=== PATIENT | male | born 1960 | race Caucasian/White ===

== ENCOUNTER 2024-09-27 23:58 | Inpatient (IN) | payer MEDICARE, SELFPAY ==
[2024-09-27 21:29] VITALS: BP 137/64
[2024-09-27] MEDS: NSS 1000 IV ×3 (21:45→23:10)
[2024-09-27] MEDS: OFIRMEV 100 IV (21:45)
[2024-09-27 21:47] LABS: Glucose - Point of Care 417 mg/dl (70-99)
[2024-09-27 22:00] VITALS: BP 120/62
[2024-09-27 22:07] LABS: Urine Albumin 1+ (Neg - Trace); Urine Bilirubin Negative (Negative); Urine Character Clear (Clear); Urine Color Yellow; Urine Glucose 3+ (Negative); Urine Ketone 3+ (Negative); Urine Leukocyte Negative (Negative); Urine Nitrite Negative (Negative); Urine Occult Blood 2+ (Negative); Urine Urobilinogen Negative (Neg - 1+)
[2024-09-27 22:10] LABS: Hematocrit 45.4 % (39.0-52.0); Hemoglobin 14.7 g/dL (13.0-18.0); Mean Corp Hgb Conc. 32.4 g/dL (33.0-37.0); Mean Corpuscular Hgb 28.6 pg (27.0-31.0); Mean Corpuscular Volume 88.3 fL (80.0-94.0); Platelet Count 116 10^3/uL (130-400); Red Blood Cell Count 5.14 10^6/uL (4.70-6.10); Red Cell Dist. Width 13.7 % (11.5-14.5); White Blood Cell Count 13.7 10^3/uL (4.8-10.8)
[2024-09-27 22:15] LABS: Lactic Acid 2.3 mmol/L (0.7-2.0)
[2024-09-27 22:18] LABS: COVID-19 Antigen Negative (Negative)
[2024-09-27 22:20] LABS: ALT (SGPT) 27 U/L (0-50); AST (SGOT) 59 U/L (17-59); Albumin 2.8 g/dl (3.5-5.0); Alkaline Phosphatase 157 U/L (38-126); Blood Urea Nitrogen 23 mg/dl (9-20); Calcium 8.8 mg/dl (8.4-10.2); Carbon Dioxide 6 mmol/L (22-30); Chloride 101 mmol/L (98-107); Glucose 423 mg/dl (70-99); Lipase 34 U/L (23-300); Potassium 2.7 mmol/L (3.5-5.1); Sodium 135 mmol/L (135-145); Total Bilirubin 1.1 mg/dl (0.2-1.3); Total Protein 5.4 g/dl (6.3-8.2); eGFR > 60.00
[2024-09-27 22:21] LABS: Urine Red Blood Cell 0-2 /HPF (0-2); Urine Squamous Cell None seen /LPF (Few); Urine White Cell 0-2 /HPF (0-5)
[2024-09-27] MEDS: ZOSYN 50 IV (22:21)
--- NOTE | 2024-09-27 22:21 | PHANOTE ---
med rec tech(09/27/24)-Unable to interview patient, sister does not know medications. Last [facility] records are from 10/26/23. [facility] has last insulin pen fill in November. Unable to confirm medication frequency or dosage.
[2024-09-27 22:30] LABS: Band Neutrophils 10 % (0-3); Segmented Neutrophils 78 % (42-75)
--- NOTE | 2024-09-27 22:30 | ED.GENMED ---
History of Present Illness
General
Chief Complaint: Fever
Source: patient, family (sister) and ambulance crew
Exam Limitations: clinical condition
Time Seen by Provider: 09/27/24 21:11
Nursing documentation reviewed up to this point in time: agreed with
History of Present Illness
History of Present Illness:
64-year-old male with a past medical history of hypertension, hyperlipidemia, insulin-dependent diabetes who presents to the emergency department with his sister with whom he lives; presents via EMS for evaluation of fever and lethargy. Patient is
lethargic and is limited as a historian as a result. His sister is at bedside and provides collateral history. She says that for the past week patient has had chills, fever, intermittent vomiting and poor appetite. He has been noncompliant with
his insulin for at least 3 days. Today was increasingly lethargic and having chills and brought to the ER for evaluation. He does have a wound on his right foot which is a chronic issue but lately has not been caring for it and has increased
drainage. According to EMS patient was found sitting in his armchair was covered in urine and stool. When asked the patient if he is in pain he says no. He says that he feels very weak. Rest of history limited.
Past History
Past History
ED Past Medical History: HTN, Hypercholesterolemia, IDDM and Other (Nonhealing ulcers, neuropathy)
ED Past Surgical History: Other (Right and left great toe great toe amputation)
Social History
Tobacco: Non-smoker
Alcohol: Occasional
Personal:
Living: with family
Employment: Employed
Family History
Family History: Other (Father with CAD and diabetes)
Review of Systems
Review of Systems
Other source history: family and ambulance crew
All Other Systems: ROS reviewed and negative except as documented in HPI and ROS
Constitutional: Reports fever, fatigue and chills
Cardiac: Denies chest pain
ABD/GI: Reports vomiting; Denies abdominal pain
Phy Exam
Physical Exam
Physical Exam:
General: Sitting in bed eyes closed but opens to voice, weak appearing
Head: Normocephalic, atraumatic
Eyes: Conjunctiva normal
Throat: Airway intact, dry mucous membranes
Neck: Trachea midline, supple without meningismus
Lungs: Tachypnea but normal pulse ox and no increased work of breathing, lungs clear to auscultation bilaterally, no wheezing, rales, rhonchi
Heart: Tachycardia with regular rhythm, no murmurs, gallops, or rubs
Abd: Soft, non distended, no apparent tenderness
Neuro: No gross cranial nerve deficits, moving all extremities equally with no gross motor deficits
Skin: Patient has wound on the plantar surface of the right foot with foul smell, surrounding erythema, dark blood with serous drainage
Extremities: Bilateral lower extremity edema, distal extremities are warm and well-perfused, foot wound on the right as above
Scores
Heart Failure Risk
Heart Failure Risk Score: Not Applicable
Heart Score for Chest Pain Patients
STEMI patient?: Not applicable
Withdrawal Assessment of Alcohol
Withdrawal Assessment Completed?: Not applicable
Sepsis
Sepsis Screening
Sepsis Assessment: Sepsis
Sepsis Screening: Lactate >2mmol/L
Sepsis Screen
Sepsis Screen: Sepsis
Date: 09/27/24
Time: 21:45
Course
Orders/Labs/Results
Orders:
Orders
09/27/24 21:38
Acetaminophen [Tylenol] 1,000 mg PO NOW STA
09/27/24 21:39
Electrocardiogram (*1) Urgent
Reason for Study: Tachycardia
EKG- Treatment ONCE
0.9% Sodium Chloride 1000 ml [Nss] 1,000 ml IV BOLUS
CR Chest Portable - 1 View Urgent
Comment:
Reason For Exam: fever
Reason Study Needs to be Portable: Unable to Transport
09/27/24 21:43
Acetaminophen 1000MG/100Ml [Ofirmev] 1,000 mg in 100 ml .ROUTE .STK-MED
09/27/24 21:44
Acetaminophen 1000MG/100Ml [Ofirmev] 1,000 mg in 100 ml IV ONCE
Acetaminophen IV Indication:: Targeted Temp Management
09/27/24 21:45
Piperacillin/Tazo 3.375 Gram [Zosyn] 3.375 gram in 50 ml IV NOW
Vancomycin [Vancocin] 1,500 mg 0.9% Sodium Chloride 500 ml [Nss] 500 ml IV NOW
09/27/24 21:46
Complete Blood Count/With Diff Urgent
Comprehensive Metabolic Panel Urgent
Lipase Urgent
Manual Differential Urgent
TSH Reflex To Free T4 Urgent
Blood Culture Q30M
ZEB Source: Blood/Venous
Specimen Description:
Blood Culture Q30M
ZEB Source: Blood/Venous
Specimen Description:
09/27/24 21:47
COVID-19 Antigen Urgent
Source: Nasal Swab
Lactate Level [Lactic Acid] Urgent
Urinalysis Reflex To Culture Urgent
Date Specimen was Collected: 09/27/24
Time Specimen was Collected: 21:42
Urine Microscopic Reflex Cult Urgent
Influenza A+B Rapid Molecular Urgent
ZEB Source: Nasal Swab
Specimen Description:
09/27/24 21:49
Wound Culture [Wound/Abscess/Other Culture] Urgent
ZEB Source: Foot
Specimen Description: Right
Date Specimen was Collected: 09/27/24
Time Specimen was Collected: 21:47
09/27/24 22:22
Bedside Glucose- Treatment Q1H
IV Insert/Care/Rem.- Treatment PRN
B-Hydroxybutyrate Urgent
Basic Metabolic Panel Q2H
Glycohemoglobin (HgbA1c) Urgent
0.9% Sodium Chloride 1000 ml [Nss] 1,000 ml IV BOLUS
0.9% Sodium Chloride 1000 ml [Nss] 1,000 ml IV BOLUS
09/27/24 22:29
Potassium Chloride [KCl] 40 meq PO NOW STA
09/27/24 22:57
Arterial Blood Gas Urgent
%Oxygen/Room Air: 95
Potassium Chloride [KCl] 40 meq 0.9% Sodium Chloride 250 ml [Nss] 250 ml IV NOW
09/28/24 00:30
Basic Metabolic Panel Q2H
09/28/24 02:30
Basic Metabolic Panel Q2H
Abnormal Lab Results
09/27/24 09/27/24 09/27/24
21:45 21:46 21:47
WBC 13.7 H 10^3/uL
(4.8-10.8)
MCHC 32.4 L g/dL
(33.0-37.0)
Plt Count 116 L 10^3/uL
(130-400)
Abs Neuts (Manual) 12.0 H 10^3/uL
(1.4-6.5)
Segmented Neutrophils 78 H %
(42-75)
Band Neutrophils 10 H %
(0-3)
Lymphocytes (Manual) 5 L %
(20-51)
pH
pCO2
HCO3
Potassium 2.7 L* mmol/L
(3.5-5.1)
Carbon Dioxide 6 L* mmol/L
(22-30)
BUN 23 H mg/dl
(9-20)
Glucose 423 H mg/dl
(70-99)
Lactic Acid 2.3 H mmol/L
(0.7-2.0)
Alkaline Phosphatase 157 H U/L
(38-126)
Total Protein 5.4 L g/dl
(6.3-8.2)
Albumin 2.8 L g/dl
(3.5-5.0)
Urine Ketones 3+ A
(Negative)
Ur Occult Blood Reflex 2+ A
(Negative)
Urine Glucose 3+ A
(Negative)
Urine Albumin (Reflex) 1+ A
(Neg - Trace)
POC Glucose 417 H mg/dl
(70-99)
09/27/24
22:57
WBC
MCHC
Plt Count
Abs Neuts (Manual)
Segmented Neutrophils
Band Neutrophils
Lymphocytes (Manual)
pH 7.24 L
(7.35-7.45)
pCO2 9 L* mmHg
(35-48)
HCO3 3.9 L* mmol/L
(21-28)
Potassium
Carbon Dioxide
BUN
Glucose
Lactic Acid
Alkaline Phosphatase
Total Protein
Albumin
Urine Ketones
Ur Occult Blood Reflex
Urine Glucose
Urine Albumin (Reflex)
POC Glucose
09/27/24 21:46
Vital Signs
Initial and Last Documented VS:
Initial Vital Signs
Temp Pulse Resp BP Pulse Ox
38.8 C H 114 28 137/64 96
09/27/24 21:29 09/27/24 21:29 09/27/24 21:29 09/27/24 21:29 09/27/24 21:29
Last Documented Vital Signs
Temp Pulse Resp BP Pulse Ox
38.8 C H 114 28 137/64 96
09/27/24 21:29 09/27/24 21:29 09/27/24 21:29 09/27/24 21:29 09/27/24 21:29
MDM/Problems Addressed
Differential Diagnosis Includes:
DKA versus hyperglycemia; sepsis; sources including viral syndrome, UTI, pneumonia, foot wound
MDM/Problems Addressed:
64-year-old male presents for evaluation of lethargy, vomiting, fever/chills worsening over the past week also noncompliant with his insulin. He is tachycardic, tachypneic, febrile. Exam as above�appears to have infected right foot wound. Labs
sent off including a CBC and a CMP, lactate, blood cultures, blood gas, urinalysis, viral swabs. Accu-Chek greater than 400. Will check a chest x-ray EKG. Cover with broad-spectrum antibiotics with concern for sepsis from foot wound. Provide IV
fluids. Plan for admission pending initial workup.
Labs reviewed: CBC shows leukocytosis to 13.7. CMP shows anion gap metabolic acidosis with a bicarb of 6 and an anion gap of 28. Glucose greater than 400. Potassium is 2.7. Concern for DKA in the setting of sepsis however with very low potassium
we will replete potassium prior to initiation of insulin infusion. IV fluid resuscitation is in progress. Already covered with broad-spectrum antibiotics. Lactate was greater than 2�repeat pending fluids. Urinalysis negative for infection.
Chest x-ray question of basilar pneumonia which has been covered with broad-spectrum antibiotics already. Viral swabs negative. At this point will admit for sepsis secondary to foot infection versus pneumonia as well as diabetic ketoacidosis.
Case discussed with hospitalist for admission.
Chronic conditions affecting care:
Diabetes, chronic foot wound
Acute Exacerbation and/or Progression of Chronic Illness:
DKA managed as above�potassium repletion prior to insulin infusion, vigorous fluid resuscitation
Sepsis secondary to pneumonia versus foot wound�treated with fluids and antibiotics
*Radiology
Radiology exam reviewed: preliminary read by ED provider and radiology read reviewed
*Pulse Oximetry
Patient hypoxic: no
*EKG
Interpreted by ED Provider?: Yes
Heart Rate: 112
Rate: tachycardiac
Rhythm: sinus and sinus tachycardia
Interval: normal interval
QRS Pattern: right bundle branch block
Ischemia: non-specific ST changes
*Critical Care Note
Total Time (30-74mins, 75-104mins- exclusive of procedures): 32
comment:
Critical care statement: A total of 32 minutes of critical care time was provided for this patient. This includes management of unstable vital signs, evaluation of the patient at bedside, frequent reassessment, discussion with
consultants/hospitalist, and review of pertinent medical records. This time was separate from time utilized to perform any aforementioned documented procedures
Data Reviewed
Review of Other/Old Records Reveals: Labs and Records
Source: patient, records, family and ambulance crew
Patient Management
Discussion with other providers: Hospitalist (Discussed with hospitalist)
Escalation/DeEscalation of care consider admission/obs:
Admission indicated
ED Attending Note
-
Portions of this chart may have been created with voice recognition software.� Occasional wrong word or��sound alike� substitutions may have occurred due to the inherent limitations of voice recognition software.
Discharge Plan
Departure
Patient Disposition: Admit
Date of Disposition: 09/27/24
Time of Disposition: 22:57
Admit to doctor: Kusum
Presentation/result/management discussed w/ accepting MD/DO: Hospitalist
Discharge Problem:
Diabetic foot infection, DKA (diabetic ketoacidosis), Acute hypokalemia, Sepsis, Pneumonia
Prescriptions:
No Action
Novolin R Regular U100 Insulin 100 UNITS/ML solution
5 units SC MEALS
insulin asp prt-insulin aspart [Novolog Mix 70-30 U-100 Insuln] 1,000 UNITS/10 ML solution
40 unit SC BID@0800,1700
Interventions
Interventions:
*Risk Screen - Suicide Last Done: 09/27/24 21:29
*General Assessment Last Done: 09/27/24 21:29
*Neglect/Abuse Screening Last Done: 09/27/24 21:29
Discharge Date and Time
Print Language: SOUTH SUDANESE
[2024-09-27 22:31] LABS: Burr Cells 1+; Lymphocytes 5 % (20-51); Metamyelocytes 2 % (-); Monocytes 2 % (2-9); Myelocytes 3 % (-); Normal RBC Morphology No; Platelets Checked Yes; Poikilocytosis 1+; Tear Drop Red Blood Cells 1+; Total Cells Counted 100
[2024-09-27 22:49] LABS: TSH Reflex To Free T4 0.67 uIU/ml (0.47-4.68)
[2024-09-27 23:00] VITALS: BP 90/53
--- NOTE | 2024-09-27 23:01 | HPS.HSE ---
Addendum entered and electronically signed by Kelly Barajas MD 09/27/24 23:50:
*CXR with left basilar pneumonia
-add on Azithromycin for atypical coverage
continue Vanc/Zosyn as below
Original Note:
Family Physician
-
Family Physician:
Chief Complaint
-
altered mental status
History of Present Illness
Mr. Maurizio Shepherd is a 64 yo man with hx IDDM, neuropathy, bilateral toe amputation, HTN, HLD, presents to the ER with altered mental status. Per triage, patient was found in a chair in urine and stool, not able to answer questions on arrival.
Patient seen with sister at bedside. He is lethargic, wakes up briefly to sternal rub and only intermittently following commands. Per sister, last week patient was having intermittent rigors and feeling fatigued. He teaches a class on computer
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 This morning patient's sister states she slept late but when she woke up she found him very confused and called 911.
Patient currently denies pain. Per sister, she doesn't think he has taken his insulin in 2-3 days. He has not been able to eat or drink much. No nausea/vomiting or diarrhea. Patient has a right foot open wound oozing blood. Sister reports that
he manages his wounds himself and hasn't seen a doctor in a while.
Medical History
Past Medical History
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
Social History
Tobacco: Non-smoker
Alcohol: Occasional (2 glasses wine weekends)
Drug: None
Employment: Employed (Packing Machine Tender)
Family History
Family History: CAD (Father ) and Other (Mother healthy living age 88 Sister DM 2)
Allergies / Home Medications
Allergies reflects when Allergies were last updated in [facility].
Home Medications with original date entered in [facility]
Allergy/Medication List:
Allergies
Allergy/AdvReac Type Severity Reaction Status Date / Time
ceftriaxone Allergy Nausea / Verified 02/01/23 08:41
Vomiting,
Hepatitis
Home Medications
insulin regular human 100 unit/mL injection solution (Novolin R Regular U-100 Insulin) 5 units SC MEALS Diabetes 03/07/21
insulin aspar prt-insulin aspart 100 unit/mL (70-30) subcutaneous soln (Novolog Mix 70-30 U-100 Insuln) 40 unit SC BID@0800,1700 Diabetes 02/01/23
If medication reconciliation has not been performed, why?: Unresponsive
Review of Systems
-
Unable to obtain full review of systems at this time due to: Other (patient confused)
Physical Exam
Vital Signs
Vital Signs
Temp Pulse Resp BP Pulse Ox
102 F H 114 28 137/64 96
09/27/24 21:29 09/27/24 21:29 09/27/24 21:29 09/27/24 21:29 09/27/24 21:29
Physical Exam
General: Other (patient lethargic, tachypneic )
HEENT: PERRLA
Respiratory: Rales; No Wheezes
Cardiac: S1/S2 and Regular Rhythm
GI: Soft and Non Tender
Musculoskeletal: No Edema and Other (right plantar surface of foot with open wound with bloody drainage and surrounding skin erythema and thickening)
Skin: Warm and Dry; No Rash
Neuro: Sedated
Psych: Calm
Laboratory Results
-
09/27/24 21:46
Laboratory Results
Lactic Acid 2.3 mmol/L (0.7-2.0) H 09/27/24 21:47
Total Bilirubin 1.1 mg/dl (0.2-1.3) 09/27/24 21:46
AST 59 U/L (17-59) 09/27/24 21:46
ALT 27 U/L (0-50) 09/27/24 21:46
Alkaline Phosphatase 157 U/L (38-126) H 09/27/24 21:46
Lipase 34 U/L (23-300) 09/27/24 21:46
Data Reviewed
-
Diagnostic Radiology: Report Reviewed by me
Lab Data: Labs Reviewed by me
Impression/Plan
-
Mr. Maurizio Shepherd is a 64 yo man with hx IDDM, neuropathy, bilateral toe amputation, HTN, HLD, presents to the ER with altered mental status. Per triage, patient was found in a chair in urine and stool, not able to answer questions on arrival.
Triage VS: T 101.8, P 114, RR 28, BP 137/64, SpO2 96%
LABS: WBC 13.7, Hg 14.7, PLT 116, bands 10%, Na 135, K+ 2.7, CO2 6, BUN 23, Cr 1.1, Glucose 423, lactate 2.3, Ca 8.8, T. Bili 1.1, AST 59, ALT 27, Alk Phos 157, TSH 0.67
urine with 3+ Ketones, 2+ occult blood
MAR: 2L IVF, IV K, Vanc/Zosyn
DKA
Lethargy 2/2 above
-in setting of severe sepsis (see below). Patient with glucose 423, bicarb 6
-receiving 3 liters IVF in ER
-admit to ICU
-unfortunately cannot start IV insulin now given Hypokalemia. Once K 3.5 OK to start IV insulin - would give 0.1 units/kg IV bolus followed by drip 0.1 units/kg/hours
-running IVF
-currently ABG shows patient is compensating for metabolic acidosis. Will repeat ABG at 2AM to monitor, low threshold for intubation if rising CO2 - discussed with overnight ICU PRIVATE BRANCH EXCHANGE INSTALLER
Hypokalemia
-will need to place Dobhoff to administer liquid potassium now
-40mEq now + IV 40
-repeat BMP every 2 hours and once K > 3.5 OK to start IV insulin gtt
Severe Sepsis
Right Food Wound Cellulitis
Hx PAD and bilateral toe amputation
-continue IV Vanc/Zosyn
-IVF
-trend lactate
-obtain arterial US
-wound RN consult
DVT PPx Lovenox subQ
FULL CODE - confirmed with sister on admission
Discussed with patient's sister the gravity of patient's condition in setting of severe DKA, severe sepsis and TME. She was told he may not survive this hospitalization.
Total Critical Care Time 50 minutes. I was immediately available to the patient and staff. I personally examined, reviewed labs, diagnostic images/reports, interpretations, treatment plans, discussed patient care with other providers and family
or caregivers (if patient is unable to make decisions), entered orders as appropriate and documented the medical record.
[2024-09-27 23:05] LABS: B.E. -20.7 mmol/L; O2 Saturation % 94.7 % (94-98); PO2 99 mmHg (83-108); pH 7.24 (7.35-7.45)
[2024-09-27 23:07] LABS: HCO3 3.9 mmol/L (21-28); PCO2 9 mmHg (35-48)
[2024-09-27] MEDS: KCL 270 MEQ IV (23:14)
[2024-09-27 23:15] VITALS: BP 102/59
[2024-09-27] MEDS: VANCOCIN 530 MG IV (23:20)
[2024-09-27 23:30] VITALS: BP 98/58
[2024-09-27] MEDS: KCL ELIXIR 40 MEQ TUBE (23:37)
[2024-09-27 23:45] VITALS: BP 104/57
[2024-09-27 23:51] LABS: Blood Urea Nitrogen 24 mg/dl (9-20); Calcium 8.4 mg/dl (8.4-10.2); Carbon Dioxide 6 mmol/L (22-30); Chloride 103 mmol/L (98-107); Glucose 435 mg/dl (70-99); Potassium 2.2 mmol/L (3.5-5.1); Sodium 135 mmol/L (135-145); eGFR > 60.00
[2024-09-28] VITALS (26 sets, daily range): BP systolic 47–120; BP diastolic 26–93; BMI 30.9
[2024-09-28 00:38] LABS: B-Hydroxybutyrate 9.79 mmol/L (0.02-0.27)
[2024-09-28] MEDS: NSS with KCL 20 MEQ 1000 IV ×2 (01:12→05:44)
[2024-09-28] MEDS: KCL ELIXIR 20 MEQ TUBE (01:33)
[2024-09-28 01:54] LABS: Hematocrit 37.8 % (39.0-52.0); Hemoglobin 12.3 g/dL (13.0-18.0); Mean Corp Hgb Conc. 32.5 g/dL (33.0-37.0); Mean Corpuscular Hgb 29.6 pg (27.0-31.0); Mean Corpuscular Volume 91.1 fL (80.0-94.0); Red Blood Cell Count 4.15 10^6/uL (4.70-6.10); Red Cell Dist. Width 13.9 % (11.5-14.5); White Blood Cell Count 14.8 10^3/uL (4.8-10.8)
--- NOTE | 2024-09-28 01:54 | PTCARENOTE ---
Received pt from ED RN. Pt is AAOx0, lethargic/drowsy, responds to tactile stimuli, b/l pupils 3 reactive. ICU GRANULIZING MACHINE OPERATOR at bedside to assess patient, aware of neuro status. decision to intubate on hold at this time. NSR w/ BBB on the monitor. On RA O2 sat
95%, lungs coarse. NGT in the right nare @ 54 cm, clamped per order. C/c #[address] Right foot heel wound, r/l great toe and left pinky toe amputation, sacrum blanchable red, b/l elbow blanchable red, wound care provided (see worklist). Received
pt with IV Vancomycin and KCl infusing. Pt with L AC #18, L wrist #20 and R AC #20. CHG bath provided. Sister @ bedside. IVF initiated. repeat labs sent. Safe environment maintained.
[2024-09-28 02:00] LABS: INR 1.44; PT 18.1 Sec (11.4-14.6)
[2024-09-28 02:01] LABS: APTT 35.6 Sec (23.4-35.0)
[2024-09-28 02:05] LABS: Blood Urea Nitrogen 25 mg/dl (9-20); Carbon Dioxide < 5 mmol/L (22-30); Chloride 109 mmol/L (98-107); Estimated Creatinine Clearance 77 ml/min; Glucose 432 mg/dl (70-99); Potassium 2.6 mmol/L (3.5-5.1); Sodium 138 mmol/L (135-145); eGFR > 60.00
[2024-09-28] MEDS: ZITHROMAX INFUSION 250 IV (02:10)
[2024-09-28] MEDS: LEVOPHED 250 IV ×7 (03:39→18:34)
[2024-09-28 03:41] LABS: Lactic Acid 2.2 mmol/L (0.7-2.0)
--- NOTE | 2024-09-28 03:56 | W.PN.ANESINT ---
Anesthesia Intubation Note
- Intubation Note
Intubation Note:
Diagnosis: DKA / SEPSIS
Blade: Glidescope 4
Tube Size: 8
Depth: 22cm
Side Taped: right
Drugs Used: propofol 50mg
Grade View: I
EtCO2 Present: +
Atraumatic: yes
Attempts: 1
Insertion Start and Stop Time:
SaO2 Pre: 99
SaO2 Post: 99
Glidescope Used: yes
Other Airway Adjustments: no
Pre-Oxygenated: yes
Portable Chest X-Ray: to follow
RSI: no
Suctioned: no
Bilateral Breath Sounds Confirmed: equal bilateral
Vent Settings:
Settings per _X__Attending Physician
[2024-09-28 04:01] LABS: Mean Platelet Volume 10.1 fL (7.4-10.4); Platelet Count 84 10^3/uL (130-400)
--- NOTE | 2024-09-28 04:34 | RESPNOTE ---
ETT advanced 2 cm per PREMIUM CANCELLATION CLERK
[2024-09-28] MEDS: ZOSYN 50 IV ×2 (05:05→09:46)
--- NOTE | 2024-09-28 05:27 | W.PN.UPDATE ---
Update Note
Progress Note Update
5353 Pt became unresponsive requiring to be intubated for airway protection. Patient intubated uneventful.
--- NOTE | 2024-09-28 05:31 | W.PN.UPDATE ---
Update Note
Progress Note Update
Procedure Note: Arterial Line�
� Right Wrist Arrow 20 (12/19)�
Diagnosis:�DKA, sepsis�
IV Line Comments: Uneventful Procedure�
Lacho's test completed pre-procedure: Yes�
A-Line Comments: Sterile technique as per standard protocol, Ultrasound guided insertion�
Functioning A-line in situ: Yes�
A-line Insertion Start Time:0515��
A-line in at:�0520�
[2024-09-28 05:33] LABS: Glucose - Point of Care 430 mg/dl (70-99)
[2024-09-28 05:36] LABS: B.E. -24.2 mmol/L; Ionized Calcium 1.29 mMOL/L (1.15-1.33); O2 Saturation % 99.2 % (94-98); PCO2 23 mmHg (35-48); PO2 190 mmHg (83-108); Potassium 3.6 mMOL/L (3.5-5.1); Sodium 134 mMOL/L (136-145)
[2024-09-28 05:40] LABS: O2 Therapy 50%
[2024-09-28 05:41] LABS: HCO3 5.7 mmol/L (21-28)
--- NOTE | 2024-09-28 05:47 | PTCARENOTE ---
Pt more somnolent CEMENT BOAT AND BARGE LOADER Brennan notified, anesthesia paged. Pt intubated #8 ETT 25 @ lip left side. Levo gtt started 4mcg per CEMENT BOAT AND BARGE LOADER Brennan, titration per protocol (see worklist). #16F temperature sensing Mckee placed. Vent settings 22/500/5/50% O2 sat 98%.
Chest xray done, per DENIS Amin ETT advanced to 27 (see order) and NGT advanced to 57 cm. Right radial freya placed, zeroed and transduced. repeat labs and ABG sent.
[2024-09-28] MEDS: SUBLIMAZE 50 MCG IV (05:57)
[2024-09-28] MEDS: LR 250 IV (05:58)
[2024-09-28 06:02] LABS: Lactic Acid 1.8 mmol/L (0.7-2.0)
[2024-09-28 06:27] LABS: ALT (SGPT) 28 U/L (0-50); AST (SGOT) 55 U/L (17-59); Albumin 2.3 g/dl (3.5-5.0); Alkaline Phosphatase 162 U/L (38-126); Blood Urea Nitrogen 31 mg/dl (9-20); Carbon Dioxide < 5 mmol/L (22-30); Chloride 112 mmol/L (98-107); Estimated Creatinine Clearance 62 ml/min; Glucose 490 mg/dl (70-99); Magnesium 2.5 mg/dl (1.6-2.3); Potassium 3.8 mmol/L (3.5-5.1); Sodium 140 mmol/L (135-145); Total Bilirubin 0.6 mg/dl (0.2-1.3); Total Protein 4.8 g/dl (6.3-8.2); eGFR 51.03
[2024-09-28] MEDS: ADRENALIN 250 IV ×2 (06:30→14:32)
[2024-09-28] MEDS: NOVOLIN R 10 UNITS IV (06:37)
[2024-09-28] MEDS: SODIUM BICARBONATE 50 MEQ IV ×4 (06:38→08:20)
[2024-09-28 06:40] LABS: B.E. -26.1 mmol/L; Ionized Calcium 1.28 mMOL/L (1.15-1.33); O2 Saturation % 99.6 % (94-98); PCO2 20 mmHg (35-48); PO2 272 mmHg (83-108); Potassium 3.2 mMOL/L (3.5-5.1); Sodium 133 mMOL/L (136-145)
[2024-09-28 06:42] LABS: O2 Therapy 100%; pH 6.96 (7.35-7.45)
[2024-09-28 06:43] LABS: HCO3 4.5 mmol/L (21-28)
[2024-09-28] MEDS: KCL ELIXIR 40 MEQ PO (06:56)
[2024-09-28] MEDS: SODIUM BICARBONATE 1075 MEQ IV (07:24)
[2024-09-28] MEDS: NOVOLIN R INSULIN INFUSION 100 IV ×2 (07:30→18:43)
[2024-09-28] MEDS: KCL 160 MEQ IV (07:49)
[2024-09-28] MEDS: SODIUM BICARBONATE 1150 MEQ IV ×3 (07:55→17:41)
[2024-09-28] MEDS: PROTONIX IV 40 MG IV ×2 (07:59→19:54)
[2024-09-28] MEDS: NSS (PRESERVATIVE FREE) 10 ML IV ×2 (07:59→19:53)
--- NOTE | 2024-09-28 07:59 | PTCARENOTE ---
Code was called @ 0625. Pt freya SBP in the 30, ICU CARD FIXER @ bedside instructed RN to initiated CPR. Nishant, epi, and levo infusing and maxed per ICU CARD FIXER. See code sheet. RASS obtained. 3 amps bicarb given, bicarb gtt hung (see MAR). Pressors titrated down
per ICU CARD FIXER. Repeat labs sent. BP continued dropping, CPR initiated per assayer helper @ bedside. See code sheet. RASS obtained. Bedside report given to rowan RN.
[2024-09-28 08:02] LABS: Glucose - Point of Care 384 mg/dl (70-99)
[2024-09-28 08:06] LABS: B.E. -24.4 mmol/L; O2 Saturation % 99.1 % (94-98); PCO2 22 mmHg (35-48); PO2 310 mmHg (83-108); Potassium 2.9 mMOL/L (3.5-5.1); Sodium 138 mMOL/L (136-145)
[2024-09-28 08:10] LABS: HCO3 5.4 mmol/L (21-28)
--- NOTE | 2024-09-28 08:23 | W.PN.UPDATE ---
Update Note
Progress Note Update
0600 Patient becoming hypotensive, Bicarbonate pushed, levophed increased.
0615 Blood pressure continues to decline, added Epi and Kaiden
0630 BP 30/10; CPR started, 1 amp of EPI pushed, CPR total 2 minutes ( ROSC regained)
[address] Arroyo, suggested given 2 amp of bicarbonate, and starting bicarb drip
0730 BP 25/5; CPR started (second time), 1 amp of EPI pushed, CPR total 2 minutes ( ROSC regained)
0745 Continues on EPI, KAIDEN, and Levophed.
[2024-09-28 08:31] LABS: Blood Urea Nitrogen 32 mg/dl (9-20); Calcium 7.4 mg/dl (8.4-10.2); Carbon Dioxide < 5 mmol/L (22-30); Chloride 113 mmol/L (98-107); Estimated Creatinine Clearance 49 ml/min; Glucose 556 mg/dl (70-99); Potassium 3.1 mmol/L (3.5-5.1); Sodium 144 mmol/L (135-145); eGFR 38.42
[2024-09-28 09:17] LABS: Glucose - Point of Care 423 mg/dl (70-99)
[2024-09-28] MEDS: SUBLIMAZE 25 MCG IV ×4 (09:46→22:38)
--- NOTE | 2024-09-28 09:48 | W.PN.HOSP.TC ---
Today's Communication/Plan
-
Total Critical Care Time_55____ minutes. I was immediately available to the patient and staff. I personally examined, reviewed labs, diagnostic images/reports, interpretations, treatment plans, discussed patient care with other providers and
family or caregivers (if patient is unable to make decisions), entered orders as appropriate and documented the medical record.
Discussed with manager assembly, nursing.
Assessment / Plan
Assessment / Plan
Impression:
Severe sepsis with multiple organ failure
Septic shock with hypotension not responding to IV fluid bolus and requiring multiple pressors.
Gram-positive bacteremia
Left lower lobe infiltrate suspected community-acquired pneumonia
Right foot chronic wound
VDRF.
� Intubated 09/27 in the settings of metabolic encephalopathy and hemodynamic instability.
PEA arrest.
Toxic metabolic encephalopathy in the settings of severe shock and acidosis.
Metabolic acidosis/DKA.
Acute kidney injury
Profound hypokalemia
Reported gastrointestinal illness days prior to presentation
Conditions prior to admission:
IDDM.
Essential hypertension.
Diabetic neuropathy.
Dyslipidemia.
Obesity with BMI of 30.
Chronic right foot wound/Charcot foot.
Plan:
Severe sepsis with septic shock not responding to IV fluid bolus requiring multiple pressors.
Blood culture with gram-positive cocci in clusters 2/2 likely sourced from right foot chronic wound
Chest x-ray with left lower lobe infiltrate concern for community-acquired pneumonia.
Broad-spectrum antibiotics vancomycin/Zosyn/azithromycin.
Follow repeat blood cultures for final results and sensitivity.
Wound assessment for surgical debridement if required.
Echocardiogram to rule out intracardiac infection once rate is better controlled (currently with persistent sinus tach)
If diarrheal stool, check for norovirus
ID consultation.
Status post PEA arrest
Remains severely hypotensive
Continue aggressive IV fluid resuscitation with sodium and bicarbonate.
Currently requires multiple pressors including norepinephrine, phenylephrine, epinephrine.
VDRF.
Intubated with toxic metabolic encephalopathy and hemodynamic instability.
Continue sedation with fentanyl
Toxic metabolic encephalopathy.
Currently post PEA arrest.
Attempt to wean off sedation to assess neurologic status
CT scan of the head.
DKA.
Severe metabolic acidosis ABG: pH 6.9
Initiated on insulin drip.
Continue IV sodium bicarbonate.
Acute kidney injury in the settings of profound hypotension/prerenal stimuli.
Mckee catheter.
IV fluid with bicarbonate ongoing.
Pressor support with goal of MAP 55-60
Serial BMP
Consider nephrology evaluation
Essential hypertension.
Dyslipidemia
Diabetic neuropathy
Full code.
DVT prophylaxis Lovenox
Anticipated Discharge: > 48 hours
Subjective/Interval History
-
Date of Service: September 28, 2024
Objective Data
-
Labs:
Laboratory Results
09/27/24 09/27/24 09/27/24
21:46 22:57 23:04
WBC 13.7 H
Hgb 14.7
Hct 45.4
Plt Count 116 L
PT
INR
APTT
HCO3 3.9 L*
Sodium 135 135
Potassium 2.7 L* 2.2 L*
Chloride 101 103
Carbon Dioxide 6 L* 6 L*
BUN 23 H 24 H
Creatinine 1.1 1.2
Glucose 423 H 435 H
Calcium 8.8 8.4
Total Bilirubin 1.1
AST 59
ALT 27
Alkaline Phosphatase 157 H
09/28/24 09/28/24 09/28/24
00:30 01:41 02:00
WBC 14.8 H
Hgb 12.3 L
Hct 37.8 L
Plt Count 84 L D
PT 18.1 H
INR 1.44
APTT 35.6 H
HCO3 Cancelled
Sodium Cancelled 138
Potassium Cancelled 2.6 L*
Chloride Cancelled 109 H
Carbon Dioxide Cancelled < 5 L*
BUN Cancelled 25 H
Creatinine Cancelled 1.2
Glucose Cancelled 432 H
Calcium Cancelled 8.0 L
Total Bilirubin
AST
ALT
Alkaline Phosphatase
09/28/2424 09/28/24
03:15 04:00 04:15
WBC
Hgb
Hct
Plt Count
PT
INR
APTT
HCO3
Sodium Cancelled Cancelled Cancelled
Potassium Cancelled Cancelled Cancelled
Chloride Cancelled Cancelled Cancelled
Carbon Dioxide Cancelled Cancelled Cancelled
BUN Cancelled Cancelled Cancelled
Creatinine Cancelled Cancelled Cancelled
Glucose Cancelled Cancelled Cancelled
Calcium Cancelled Cancelled Cancelled
Total Bilirubin
AST
ALT
Alkaline Phosphatase
09/28/24 09/28/24 09/28/24
05:24 05:24 05:24
WBC
Hgb
Hct
Plt Count
PT
INR
APTT
HCO3
Sodium 140 Cancelled
Potassium 3.8 D Cancelled
Chloride 112 H
Carbon Dioxide
BUN
Creatinine
Glucose
Calcium
Total Bilirubin
AST
ALT
Alkaline Phosphatase
09/28/24 09/28/24 09/28/24
05:24 05:24 05:24
WBC
Hgb
Hct
Plt Count
PT
INR
APTT
HCO3
Sodium
Potassium
Chloride Cancelled
Carbon Dioxide < 5 L* Cancelled
BUN 31 H Cancelled
Creatinine 1.5 H
Glucose
Calcium
Total Bilirubin
AST
ALT
Alkaline Phosphatase
09/28/24 09/28/24 09/28/24
05:24 05:24 05:24
WBC
Hgb
Hct
Plt Count
PT
INR
APTT
HCO3
Sodium
Potassium
Chloride
Carbon Dioxide
BUN
Creatinine Cancelled
Glucose 490 H* Cancelled
Calcium 8.0 L Cancelled
Total Bilirubin 0.6
AST 55
ALT 28
Alkaline Phosphatase 162 H
09/28/2424 09/28/24
05:26 06:36 07:54
WBC
Hgb
Hct
Plt Count
PT
INR
APTT
HCO3 5.7 L* 4.5 L* 5.4 L*
Sodium 144
Potassium 3.1 L
Chloride 113 H
Carbon Dioxide < 5 L*
BUN 32 H
Creatinine 1.9 H
Glucose 556 H*
Calcium 7.4 L
Total Bilirubin
AST
ALT
Alkaline Phosphatase
09/28/24 09/28/24 09/28/24
08:00 10:00 12:00
WBC
Hgb
Hct
Plt Count
PT
INR
APTT
HCO3
Sodium Cancelled Pending Cancelled
Potassium Cancelled Pending Cancelled
Chloride Cancelled Pending Cancelled
Carbon Dioxide Cancelled Pending Cancelled
BUN Cancelled Pending Cancelled
Creatinine Cancelled Pending Cancelled
Glucose Cancelled Pending Cancelled
Calcium Cancelled Pending Cancelled
Total Bilirubin
AST
ALT
Alkaline Phosphatase
09/28/24
14:00
WBC
Hgb
Hct
Plt Count
PT
INR
APTT
HCO3
Sodium Pending
Potassium Pending
Chloride Pending
Carbon Dioxide Pending
BUN Pending
Creatinine Pending
Glucose Pending
Calcium Pending
Total Bilirubin
AST
ALT
Alkaline Phosphatase
Vital Signs:
Vital Signs
Temp Pulse Resp BP Pulse Ox
100 F 141 28 85/62 99
09/28/24 05:55 09/28/24 09:15 09/28/24 09:15 09/28/24 08:00 09/28/24 09:31
I&O
09/27/24 09/28/24 09/29/24
06:59 06:59 06:59
Intake Total 1274.0 / 1854.5 1703.5 / 1703.5
Output Total 409 / 439 80 / 80
Balance 865.0 / 1415.5 1623.5 / 1623.5
Physical Exam
-
General: Well Developed and Other (Sedated, intubated.)
HEENT: Normocephalic, Atraumatic, Moist Mucous Membranes and Other (ET tube in place with clear secretions)
Respiratory: Decreased Breath Sounds; Negative Wheezes
Cardiac: Regular Rhythm, S1/S2 and Tachycardic; Negative Murmur, Rub or Gallop
GI: Soft, Nontender, Nondistended and Normal Bowel Sounds; Negative Organomegaly
Rectal: Deferred by Provider
Musculoskeletal: No Clubbing, No Cyanosis and No Edema
Skin: Negative Rash
Neuro: Sedated and Nonfocal/Grossly Intact
--- NOTE | 2024-09-28 10:00 | PTCARENOTE ---
2nd code called at bedside at approx 0730, CPR started again, 1 epi and 1 bicard bolus given, Pt returned to ROSC. Dr Arroyo in room during code. See code sheet for details. Pt does not open eyes to sound or tactile stimuli. HR ST with BBB, EPI,
Bicarb, NS with 20 meq KCL, Levo, and Nishant drip infusing. (see worksheet for rates). Reg Ins drip started when received from pharmacy. Accu checks being done q 1 hr, glu running 423-497. Ins rate to stay at 6 units/hr as per Dr Arroyo for now. Pt
with +3 edema on R Lower ext and L Lower ext +1 edema. All labs have and meds havae been reviewed with Dr Arroyo and Dr De La Torre. Pt is orally intubated, #8, 27 at L lip, vent settings presently weaned to AC 30, 500 TV, 5 peep, and60%, Lungs coarse
throughout and diminished at bases bilat. Scant to no secretions from suctioning ETT. Exts cool, but temp 99 ax. NGT clamped, meds/KCL given via NGT as ordered. Mckee cath with sm amt yellow cloudy urine draining. Pt's sister to room and updated.
[2024-09-28 10:15] LABS: Glucose - Point of Care 487 mg/dl (70-99)
--- NOTE | 2024-09-28 10:27 | CM ---
CM following rte: discharge planning.
Discussed in Rounds, reviewed pt's chart, met with pt.
Pt is a 64 year old male, admitted with primary dx of Severe sepsis with septic shock. Per Rounds meeting, pt remains intubated, not responding to IV fluid bolus and requiring multiple pressors, continue supportive care.
Per chart review, pt lives with mother and a sister in a 2 story home, 2 steps to enter. Patient has walker, rolling walker, cane, knee scooter, wheelchair. No VN or Skilled rehab in the past. Patient works and drives. Pt was doing wound care by
himself and refused to have VN services and per sister did not see a Dr.
PCP: Dr Kennedy.
Pharmacy: [facility]
D/C plan: uncertain at this time and will depend on pt's progress.
CM will follow with discharge plan updates as hospitalization progresses
--- NOTE | 2024-09-28 10:37 | CON.ID ---
Addendum entered and electronically signed by Sobia Barreto MD 09/28/24 16:19:
I personally performed a history and physical exam of the patient and discussed management with the resident. I reviewed the resident's note and agree with the documented findings and plan of care HPI/CC.
Exam:
Acutely ill, on vent
Chest: + rhonchi
CV: tachycardic S1S2,, no murmurs
Abd: normal BS, soft, nontender, nondistended
Extremities: cool, dusky toes and fingers. + BLE lymphedema , very dry skin
Wounds: reviewed photos + R charcot foot , right plantar foot with large deep wound, pink red granulation base
left heel unstageable large wound with necrosis, + erythema (+ bogginess per wound RN)
09/28/24 CXR: personally reviewed, no infiltrates
# Staph aureus (probably MSSA) bacteremia
# Left heel unstageable wound - likely source
# Septic shock with multi-organ failure , on 3 pressors
# s/p cardiac arrest x 2
# DM with DKA
# Obtunded
- TTE
-Repeat blood cx's until clear
- Add cefazolin 2g IV q8H for suspected MSSA
- Continue Vancomycin for now pending culture data
Follow vancomycin level closely
- DC Zosyn
- Continue ICU support
-Trend fever curve, vitals, wbc
- Prognosis poor.
Case discussed with Dr. Arroyo.
Original Note:
Consultation
-
Date/Time Consultation Requested: 09/28/2024
Date/Time Consultation Performed: 09/28/2024
Requesting Provider: Laura Traore CRNP
Performing Provider: Sobia Barreto MD
Reason for Consultation: Diabetic foot wound
Chief Complaint / Past History
Chief Complaint
Fever and chills
History of Present Illness
This is a 64-year-old male with a history of left fifth toe osteomyelitis, Charcot foot, T2DM who presented to the emergency department yesterday for evaluation of fever and lethargy. Patient has been experiencing symptoms of generalized weakness,
chills, fever and intermittent vomiting over the past 3 days. Patient currently has a wound on his right foot which has been a chronic issue. He has been seen multiple times at [facility] for right foot wound. Over the past few days,
there has been increased drainage of wound. On presentation to ER, patient was febrile with temperature 102 �F, tachycardic at 114, respiratory rate 28, blood pressure 137/64. Evaluation with a chest x-ray showed left basilar pneumonia.
Laboratory on presentation showed WBC 14.8, platelet count 84, potassium 3.1, lactic acid 2.3. Patient was admitted, started on vancomycin and Zosyn. Blood cultures were ordered. At 345 this a.m. patient became unresponsive requiring intubation.
In addition patient became hypotensive, had multiple episodes of PEA arrest, now on multiple pressors including epinephrine, phenylephrine, epinephrine. Blood cultures have returned with gram-positive cocci in clusters X2.
Past History
Past Medical History: Other (Hypertension, hyperlipidemia, T2DM, neuropathy, Charcot foot)
Past Surgical History: Other (Right and left great toe amputations,)
Allergy History:
ceftriaxone Allergy (Verified 02/01/23 08:41)
Nausea / Vomiting, Hepatitis
Medications Reviewed: Yes
Current Antibiotics:
Zosyn
Vancomycin
Social History
Tobacco: Non-Smoker
Alcohol: Occasional
Drug: None
Review of Systems
Review of Systems
General: Other (unable due to intubation)
Vital Signs
Temp Pulse Resp BP Pulse Ox
100 F 141 28 85/62 99
09/28/24 05:55 09/28/24 09:15 09/28/24 09:15 09/28/24 08:00 09/28/24 09:31
Physical Exam
Physical Exam
Constitutional: Other (Intubated and sedated)
Cardiovascular: Irregular Rate and S1/S2
Pulmonary: Other (Decreased breath sounds bilaterally)
Gastrointestinal: Soft, Non Tender and Non Distended
Extremities: Negative Edema
Lab / Diagnostic Study Results
09/28/24 01:41
Total Counted 100 09/27/24 21:46
Abs Neuts (Manual) 12.0 10^3/uL (1.4-6.5) H 09/27/24 21:46
Segmented Neutrophils 78 % (42-75) H 09/27/24 21:46
Band Neutrophils 10 % (0-3) H 09/27/24 21:46
Lymphocytes (Manual) 5 % (20-51) L 09/27/24 21:46
PT 18.1 Sec (11.4-14.6) H 09/28/24 01:41
INR 1.44 09/28/24 01:41
Lactic Acid 1.8 mmol/L (0.7-2.0) 09/28/24 05:24
Ur Squamous Epith Cells None seen /LPF (Few) 09/27/24 21:47
Microbiology Results
Micro:
09/27/24 21:46 Blood Culture - Preliminary
Blood/Venous Staphylococcus aureus
Gram Stain - Final
09/27/24 21:46 Blood Culture - Preliminary
Blood/Venous Positive culture in progress
Gram Stain - Final
09/28/24 01:41 MRSA Screen - Pending
Nose
09/27/24 21:47 Influenza Types A & B (MIRANDA) - Final
Nasal Swab Negative for Influenza A & B, NAAT
Negative results must be combined with clinical observations
and patient history.
Nucleic Acid Amplification test (NAAT)performed on the
[employer] platform.
09/27/24 21:49 Wound Culture - Pending
Foot - Right Gram Stain - Pending
11/28/2023 chest x-ray; Left basilar pneumonia.
Assessment / Plan
Assessment/plan
#Severe sepsis(POA) secondary to below
#Chronic wound of right foot
#Gram-positive bacteremia
# PEA arrest
# Respiratory failure
-Intubated and sedated 09/27
#Septic shock requiring multiple pressors
-Blood cultures with gram-positive cocci in clusters
-Initiated on broad-spectrum antibiotics with vancomycin/Zosyn
-will d/c Zosyn.
-Continue on Vancomycin, Add Cefazolin for MSSA.
-Check Blood cultures today.
-Consider echocardiogram when patient stabilizes
-Follow wbc, temperature.
--- NOTE | 2024-09-28 10:44 | WOUNDNOTE ---
R PLANTAR FOOT (with photo flash)
--- NOTE | 2024-09-28 10:44 | WOUNDNOTE ---
R PLANTAR FOOT (undermines approximately 3cm)
--- NOTE | 2024-09-28 10:46 | WOUNDNOTE ---
L FOOT/ANKLE (DORSAL)
--- NOTE | 2024-09-28 10:51 | CON.INTV ---
Consultation
Consultation Request
Date/Time Consultation Requested: 09/28/2024
Date/Time Consultation Performed: 09/28/2024
Requesting Provider: Dr. Barajas
Performing Provider: Dr. Mao Arroyo
Reason for Consultation: Hypercapnic respiratory failure/shock/DKA
Medical History
-
History of Present Illness:
64-year-old man with history of insulin-dependent diabetes, neuropathy, bilateral toe amputation, right foot wound possible osteomyelitis, hyperlipidemia, presented to the emergency room with altered mental status. Her sister who lives with him
found him in a chair covered with urine and his stools. Patient not able to give any information on arrival.
Lethargic, not following commands consistently apparently in the emergency room.
Apparently patient has been sick for about a week, developed nausea vomiting or diarrhea. Apparently not taking his insulin for the last 3 to 4 days.
Unable to provide history.
Subsequently due to obtundation patient was intubated.
Potassium repletion was started. Bicarbonate also subsequently started.
Patient developed acute cardiorespiratory arrest requiring CPR.
Upon my arrival this morning, despite 3 vasopressors, high doses of epinephrine, norepinephrine and Nishant-Synephrine patient was hypotensive. Persistent acidosis despite multiple doses of bicarbonate.
Additional brief CPR was given.
Regain of ROSC in about 2 minutes.
Past Medical History
Past Medical History: Other (See assessment and plan)
Social History
Alcohol: None
Drug: None
Family History
Family History: Unable to Obtain
Allergies / Home Medications
Allergies
Allergy/AdvReac Type Severity Reaction Status Date / Time
ceftriaxone Allergy Nausea / Verified 02/01/23 08:41
Vomiting,
Hepatitis
Home Medications
�Medication �Instructions �Recorded �Confirmed �Last Taken �Type
insulin regular human 100 unit/mL 5 units SC MEALS Diabetes 03/07/21 02/01/23 02/01/23 History
injection solution (Novolin R
Regular U-100 Insulin)
insulin aspar prt-insulin aspart 40 unit SC BID@0800,1700 Diabetes 02/01/23 02/01/23 02/01/23 History
100 unit/mL (70-30) subcutaneous
soln (Novolog Mix 70-30 U-100
Insuln)
Review of Systems
-
Unable to Obtain full review of systems at this time due to: Patient Intubation
Vitals / Labs / Diagnostic Testing
Vital Signs
Temp Pulse Resp BP Pulse Ox
100 F 141 28 85/62 99
09/28/24 05:55 09/28/24 09:15 09/28/24 09:15 09/28/24 08:00 09/28/24 09:31
Lab Data
09/28/24 01:41
Laboratory Results
09/27/24 09/28/24 09/28/24
22:57 01:41 02:00
PT 18.1 H
INR 1.44
APTT 35.6 H
pH 7.24 L Cancelled
pCO2 9 L* Cancelled
pO2 99 Cancelled
HCO3 3.9 L* Cancelled
O2 Delivery Level Cancelled
09/28/24 09/28/24 09/28/24
05:26 06:36 07:54
PT
INR
APTT
pH 7.00 L* 6.96 L* 7.00 L*
pCO2 23 L 20 L 22 L
pO2 190 H 272 H 310 H
HCO3 5.7 L* 4.5 L* 5.4 L*
O2 Delivery Level 50% 100%
Microbiology
09/27/24 21:46 Blood/Venous Blood Culture - Preliminary
Staphylococcus aureus
09/27/24 21:46 Blood/Venous Gram Stain - Final
09/27/24 21:46 Blood/Venous Blood Culture - Preliminary
Positive culture in progress
09/27/24 21:46 Blood/Venous Gram Stain - Final
09/27/24 21:47 Nasal Swab Influenza Types A & B (MIRANDA) - Final
Negative for Influenza A & B, NAAT
Negative results must be combined with clinical observations
and patient history.
Nucleic Acid Amplification test (NAAT)performed on the
[employer] platform.
Diagnostic Testing:
Physical Exam
-
HEENT: Normocephalic and Other (ET tube in place without secretions)
Cardiovascular: S1/S2
Respiratory: Clear
GI: Soft and Non Distended
Neurology: Other (Pupils are equal, sluggish, difficult exam at this point remains comatose.) and Other (Sedated/unresponsive unresponsive, intubated on mechanical ventilation.)
Skin: Other (Bilateral toe amputations. Right foot is dressed.)
Assessment
-
64-year-old man with history of insulin-dependent diabetes, bilateral toe amputation, multiple other comorbidities, admitted with profound metabolic acidosis, change in mental status, developed progressive respiratory failure recurrent intubation.
The morning of 09/28/2024 developed cardiorespiratory arrest requiring CPR x 2. Patient in shock multiple vasopressors, on mechanical ventilation.
Cardiorespiratory arrest likely due to profound metabolic acidosis
CPR x 2 09/28/2024
septic shock-source likely right foot wound.
Hypercapnic respiratory failure recurrent intubation.
DKA-profound metabolic acidosis.
Profound hypokalemia
Conditions present prior admission:
Hyperlipidemia
Peripheral vascular disease
Hypertension
Peripheral neuropathy-Charcot foot
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
Former smoker
Assessment and plan:
Patient is critically ill, on multiple vasopressors, intubated, sedated.
-
Status post cardiorespiratory arrest. Suspect trigger was profound metabolic acidosis.
CPR x 2. Regained ROSC post CPR for about 2 to 3 minutes twice.
Remains unresponsive-has respiratory effort without sedation.
Continue with supportive care.
Eventual CT head
-
Septic shock suspected: Bacteremia with a staff aureus noted.
Suspect source from his right foot.
Chest x-ray unrevealing: ET tube in place. Suspect subsegmental atelectasis. Cannot rule out an aspiration event either.
Continue current antibiotics
Follow culture identification
-
Continue vasopressors epinephrine/norepinephrine and Nishant-Synephrine to target mean arterial blood pressure 65 mmHg.
Initial lactic acid was 1.8. Will trend.
Follow renal function
Mckee in place.
-
Profound metabolic acidosis
Patient received multiple boluses of bicarbonate under my supervision.
Currently on bicarbonate drip at 200 cc an hour
ABG with slight improvement of metabolic acidosis.
Mechanical ventilation has been adjusted.
Repeat ABG in the next 30 to 40 minutes.
-
Insulin drip per DKA protocol
Serial BMPs
Accu-Cheks hourly
-
Mechanical ventilation settings reviewed.
Pulmonary mechanics are adequate.
FiO2 40%.
No significant secretions on ET tube.
Currently on maximal ventilator support with a respiratory rate of 30
Will adjust based on ABG as acidosis improved.
-
Acute kidney injury due to hypotensive insult.
Continue with hemodynamic support
Hypokalemia: Being repleted IV and p.o.
Frequent BMPs.
-
N.p.o.
Head of the bed elevation
IV Protonix for GI prophylaxis
Lovenox for DVT prophylaxis
-
Discussed with primary team in detail.
-
Dr. Arroyo updated daughter personally in the hospital, critical situation, high risk of she understands. I have asked her to bring family at the bedside.
For now continue with full support. Apparently patient would not want prolonged mechanical ventilation or life sustaining measures if there is no chance of a good quality of life.
-
Critical care statement: A total of 81 minutes of critical care time was provided for this patient today. This includes management of unstable vital signs, evaluation of the patient at bedside, reviewing the patient's pertinent medical records
including ventilator settings, arterial blood gases, radiographs, microbiology, laboratory evaluations and discussion with primary team, critical care nursing, and respiratory therapy.
--- NOTE | 2024-09-28 10:53 | WOUNDNOTE ---
[facility] RN note: Patient admitted with sepsis, DKA, pneumonia, R foot infection. Patient coded twice this am.
See H&P for complete history.
PMH: IDDM, neuropathy, bilateral great toe amp, HTN, smoker.
Wound Location and type/assessment: Patient admitted with: R plantar foot full thickness diabetic ulcer to muscle or deeper, dark pink and undermines approximately 3cm. L plantar heel boggy black eschar with surrounding erythema. Toes cool. Patient
on vasopressors. Pedal pulses heard via portable Doppler (L>R). Unable to assess sacrum as per WELT ROUGHERALLISON Reyes d/t post code. Amy stated sacrum reported as red. Amy to tiger text this proposal manager writer if she has concerns with his sacrum when he is able to
be turned.
Appetite: NPO currently, intubated.
Pressure redistribution devices in place: Centrella Max air bed. Heels off bed with pillows.
Plan: Bilateral heel dressings changed. Heel elevation maintained. Updated Dr. Griffin re: full thickness plantar wounds, L plantar heel boggy black eschar with surrounding redness; pedal pulses heard via portable Doppler (R hard to hear);
requested podiatry consult as appropriate re: concern of L heel infection; Confirmed local care, air mattress with Dr. Griffin. Discussed with ALLISON Reyes.
Care plan to be updated and will follow as needed. Patient is known to Dr. Diego.
--- NOTE | 2024-09-28 11:05 | W.PN.UPDATE ---
Update Note
Progress Note Update
Procedure note: CPR.
During evaluation, patient hypotensive despite 3 vasopressors. No pulse detected on femoral artery Dopplers.
CPR started under my supervision. Good waveform obtained.
1 amp of epinephrine and 1 amp of bicarbonate given.
ROSC obtained-remain on epinephrine/Nishant-Synephrine and Levophed at max doses.
Has respiratory effort but remains comatose on mechanical ventilation.
-
Will continue with postcode support and reversal of acidosis.
[2024-09-28] MEDS: KCL ELIXIR 40 MEQ TUBE ×2 (11:15→13:53)
[2024-09-28 11:19] LABS: Vancomycin Random 10.5 ug/ml
[2024-09-28 11:20] LABS: Glucose - Point of Care 497 mg/dl (70-99)
--- NOTE | 2024-09-28 11:23 | W.PN.UPDATE ---
Update Note
Progress Note Update
Now with coffee-ground on NG tube.
Increase Protonix to every 12
Suspect due to acute illness
Follow H&H
May need to stop Lovenox if continues.
Maintain NG tube to suction
[2024-09-28 12:10] LABS: Glucose - Point of Care 411 mg/dl (70-99)
[2024-09-28 12:53] LABS: Blood Urea Nitrogen 39 mg/dl (9-20); Calcium 7.6 mg/dl (8.4-10.2); Carbon Dioxide 9 mmol/L (22-30); Chloride 111 mmol/L (98-107); Estimated Creatinine Clearance 52 ml/min; Glucose 524 mg/dl (70-99); Potassium 2.6 mmol/L (3.5-5.1); Sodium 140 mmol/L (135-145)
--- NOTE | 2024-09-28 13:03 | PHA.VAN.IN ---
Assessment
- Assessment
Renal Function: Appears elevated from baseline
Maximum Temperature: 102
Concomitant Antimicrobials: cefazolin
Plan
- Plan
Initial / Loading Dose: vanc 1500 mg 09/27 23:20 (14 mg/kg)
Maintenance Regimen: dose by level
Monitoring: random 09/28 1000 and 09/29 am
random level 10.5, ~11 hours post 1500 mg dose, redose with 1500mg
Pharmacokinetics Vancomycin I
- -
Patient Age: 31
Patient Sex: Male
Vancomycin Day #: 2
Indication: Skin And Soft Tissue (+bacteremia + possible PNA)
Requesting Provider: BALBIR Momin
Pertinent Antimicrobial Allergies:
ceftriaxone Allergy - Nausea / Vomiting, Hepatitis
Height / Weight:
Height 6 ft 1 in
Actual Weight 106.3 kg
Pertinent Past Medical History: DM, DKA, bilateral toe amputation
- Vital Signs / Lab Results
Temp Pulse Resp BP Pulse Ox
99.4 F 137 30 85/62 100
09/28/24 11:18 09/28/24 12:45 09/28/24 12:45 09/28/24 08:00 09/28/24 12:45
Lab Results - Hematology
09/27/24 09/28/24
21:46 01:41
WBC 13.7 H 14.8 H
Band Neutrophils 10 H
Lab Results - Chemistry
09/27/24 09/27/24 09/28/24
21:46 23:04 00:30
BUN 23 H 24 H Cancelled
Creatinine 1.1 1.2 Cancelled
Estimated Creat Clear Cancelled
Albumin 2.8 L
09/28/24 09/28/24 09/28/24
01:41 03:15 04:00
BUN 25 H Cancelled Cancelled
Creatinine 1.2 Cancelled Cancelled
Estimated Creat Clear 77 Cancelled Cancelled
Albumin
09/28/24 09/28/24 09/28/24
04:15 05:24 05:24
BUN Cancelled 31 H Cancelled
Creatinine Cancelled 1.5 H
Estimated Creat Clear Cancelled
Albumin
09/28/24 09/28/24 09/28/24
05:24 05:24 07:54
BUN 32 H
Creatinine Cancelled 1.9 H
Estimated Creat Clear 62 Cancelled 49
Albumin 2.3 L
09/28/24 09/28/24 09/28/24
08:00 11:29 12:00
BUN Cancelled 39 H Cancelled
Creatinine Cancelled 1.8 H
Estimated Creat Clear Cancelled 52
Albumin
09/28/24 09/28/24 09/28/24
12:00 12:00 12:00
BUN Cancelled
Creatinine Cancelled Cancelled
Estimated Creat Clear Cancelled Cancelled
Albumin
09/28/24 09/28/24 09/28/24
14:00 16:00 20:00
BUN Cancelled Cancelled Cancelled
Creatinine Cancelled Cancelled Cancelled
Estimated Creat Clear Cancelled Cancelled Cancelled
Albumin
09/27/24 09/28/24 09/28/24
21:47 01:41 05:24
Lactic Acid 2.3 H 2.2 H 1.8
Lab Results - Urine
09/27/24
21:47
Urine Nitrite (Reflex) Negative
Leukocyte Esterase Rfl Negative
Urine WBC (Reflex) 0-2
Ur Squamous Epith Cells None seen
Microbiology Results
09/27/24 21:49 Gram Stain - Preliminary
Foot - Right
09/27/24 21:46 Blood Culture - Preliminary
Blood/Venous Staphylococcus aureus
Gram Stain - Final
09/27/24 21:46 Blood Culture - Preliminary
Blood/Venous Positive culture in progress
Gram Stain - Final
09/27/24 21:47 Influenza Types A & B (MIRANDA) - Final
Nasal Swab Negative for Influenza A & B, NAAT
Negative results must be combined with clinical observations
and patient history.
Nucleic Acid Amplification test (NAAT)performed on the
[employer] platform.
[2024-09-28 13:05] LABS: Blood Urea Nitrogen 37 mg/dl (9-20); Calcium 7.6 mg/dl (8.4-10.2); Carbon Dioxide 7 mmol/L (22-30); Chloride 111 mmol/L (98-107); Estimated Creatinine Clearance 49 ml/min; Glucose 539 mg/dl (70-99); Potassium 2.7 mmol/L (3.5-5.1); Sodium 141 mmol/L (135-145); eGFR 38.42
[2024-09-28 13:12] LABS: Glucose - Point of Care 465 mg/dl (70-99)
[2024-09-28] MEDS: KCL 100 IV ×2 (13:53→15:56)
[2024-09-28 13:57] LABS: B.E. -12.4 mmol/L; O2 Saturation % 98.6 % (94-98); PCO2 19 mmHg (35-48); PO2 146 mmHg (83-108); pH 7.36 (7.35-7.45)
[2024-09-28] MEDS: VANCOCIN 530 MG IV (13:59)
[2024-09-28 14:03] LABS: HCO3 10.7 mmol/L (21-28)
[2024-09-28 14:09] LABS: Glucose - Point of Care 427 mg/dl (70-99)
--- NOTE | 2024-09-28 14:10 | PTCARENOTE ---
Dr Arroyo to room, Pt's K+ was 2.6, more KCL 40 meq/100 started over 2 hr, x 2 doses. Additional 40 meq x2 KCL given via NGT. Wound card RN was in to assess Pt's R and L heel open foot wounds. New drsgs and carmela applied to both wonds/feet. 2 L
foot toes amp and 1 R foot toe amp. Foot and Ankle MD in to see pt. She said that she has seen him in the past, but he hasn't been back in a few years. After assessing wounds, she feels pt does not need surg today. Epi drip has been weaned down to 4
mcg/min. Vent O2 down to 40%. Pt's accu checks remain elevated, reg ins drip increased to 8 units/hr, but Dr Arroyo does not want to go up on rate any more for awhile. Bicard con'ts to be replaced with 150 meq/ 1000 at 200 ml/hr. Maintenance IV
wiih K+ has been d/c'd.
[2024-09-28] MEDS: NEO-SYNEPHRINE 250 IV (14:23)
--- NOTE | 2024-09-28 15:06 | W.CS.POD ---
Consult Summary - Podiatry
-
64 yo diabetic neuropathic male admitted tot [facility] with altered mental status change and septic shock presentation, after coding twice this morning he is now on ventilator with vasopressors, Podiatry has been consulted due to his b/l
plantar ulcers and bacteremia, Patient was known to me from prior hosp admissions with multiple diabetic SST infections also osteomyelitis. He was last seen in my office in 09/2022. Patient had this chronic non healing Rt plantar ulcerations now he
has LT plantar ulceration as well. HE is obtunded so obtained majority of the history from chart review, according to his sister, he was not taking his insulin for the last 3 days and she noticed him being not responding well. Patient with
bacteremia on IV Abx
Exam : b/l pedal pulses dopplerable
B/L feet no edema, no duskiness
LT heel eschar with some bogginess noted, no active purulence, no foul odor, There is local erythema noted.
Rt plantar aspect with large, granular ulcer , doses not probe to bone, no visible bone, no purulence noted. Local erythema noted
WBC count at 14.8
A/P: Infected diabetic foot ulcers
LT plantar eschar and Rt palntar ulcer
Septic shock.
Bacteremia
Hyperkalemia.
Plan ; Cont IV abx
Will order b/l portable xrays
D/W hosp service that LT plantar ulcer debridement when stable medically. Since there is no active drainage por any signs of abscess b/l plantar feet on exam .
Podiatry will follow
[2024-09-28 15:15] LABS: Glucose - Point of Care 452 mg/dl (70-99)
--- NOTE | 2024-09-28 15:33 | W.PN.UPDATE ---
Addendum entered and electronically signed by Mao Diallo MD 09/28/24 16:41:
Repeat BMP now with magnesium and phosphorus.
Continue aggressive potassium repletion
If acidosis is improved we will need to discontinue bicarbonate drip as were having difficulty with significant hypokalemia.
Prognosis is guarded
-
Will add vasopressin with attempt to wean down Levophed and Nishant-Synephrine.
Patient now is febrile and this suggest component of septic shock.
Currently on proper antibiotics per infectious disease
Follow final cultures
Eventually will consult podiatry to evaluate his lower extremity wound.
-
Additional critical care time 15-minute
Original Note:
Update Note
Progress Note Update
Laboratories this afternoon reviewed.
Metabolic acidosis is slowly improving
Remains significantly hypokalemic despite aggressive replenishment.
Remains hyperglycemic.
Continue insulin drip but will not aggressively correct blood sugars as patient remains hypokalemic.
Will give IV 40 dom acute events of KCl twice a day. Will also replete through the NG tube.
Continue with close monitoring of BMP.
ABG showed compensated metabolic acidosis-Will adjust mechanical ventilation pending all repeat ABGs.
He is febrile: Continue current antibiotics. Infectious diseases following.
Remains on multiple vasopressors will continue to wean down as able.
Prognosis remain guarded.
-
Additional critical care time 20 minutes
--- NOTE | 2024-09-28 15:40 | PTCARENOTE ---
All drips and labs have be reviewed with Dr Arroyo. Epi drip has been weaned to off, presently weaning Nishant drip next, presntly down to 80 mcg/min. Temp elevated now to 102.1 ax, tylenol elix 650 mg ordered and given.
[2024-09-28] MEDS: TYLENOL ORAL SOLUTION 650 MG TUBE ×2 (15:51→18:10)
[2024-09-28 16:09] LABS: Glucose - Point of Care 439 mg/dl (70-99)
[2024-09-28] MEDS: ANCEF 10 IV ×2 (16:22→23:50)
[2024-09-28] MEDS: PITRESSIN 100 IV ×2 (16:57→23:55)
[2024-09-28 17:06] LABS: Blood Urea Nitrogen 45 mg/dl (9-20); Calcium 7.4 mg/dl (8.4-10.2); Carbon Dioxide 13 mmol/L (22-30); Chloride 110 mmol/L (98-107); Estimated Creatinine Clearance 46 ml/min; Glucose 474 mg/dl (70-99); Magnesium 2.1 mg/dl (1.6-2.3); Phosphorus 0.5 mg/dl (2.5-4.5); Potassium 4.8 mmol/L (3.5-5.1); Sodium 138 mmol/L (135-145); eGFR 36.13
[2024-09-28 17:08] LABS: Glucose - Point of Care 415 mg/dl (70-99)
[2024-09-28 17:21] LABS: Glucose - Point of Care 515 mg/dl (70-99)
[2024-09-28] MEDS: POTASSIUM PHOSPHATE 259.0909 MEQ IV (18:11)
[2024-09-28 18:27] LABS: Glucose - Point of Care 392 mg/dl (70-99)
[2024-09-28 18:33] LABS: Blood Urea Nitrogen 45 mg/dl (9-20); Calcium 7.4 mg/dl (8.4-10.2); Carbon Dioxide 14 mmol/L (22-30); Chloride 112 mmol/L (98-107); Estimated Creatinine Clearance 46 ml/min; Glucose 467 mg/dl (70-99); Potassium 4.9 mmol/L (3.5-5.1); Sodium 137 mmol/L (135-145); eGFR 36.13
--- NOTE | 2024-09-28 18:51 | PTCARENOTE ---
All labs have been reviewed with Dr Arroyo. Bicarb drip decreased to 100 ml/hr. Insulin drip to remain at 8 units/hr. Nishant has also been weaned off now. Levophed at30 mcg/min, and vasopressin 0.03 units/min. Cooling blanket was applied under pt.
Pt's temp presently 105.7, after second dose of tylenol elixir and cooling blanket on for an hr. Mouth care done several times throughout day, nicolas care done, complete CHG bath given and linen changed. Pt's sister was home for a few hrs, and back
now and updated. She is very appreciate of all the care given today for her brother. Pastoral care in see pt and sister.
[2024-09-28 19:08] LABS: Glucose - Point of Care 448 mg/dl (70-99)
--- NOTE | 2024-09-28 20:08 | CHAP ---
Called by sister, Juanis, to pray with Osmin. (Their mother was on Hospice earlier this year, so the family is known to this psychiatric security nurse.) Listened long to Juanis's thoughts and feelings about the situation; provided emotional and spiritual support. We
offered prayers for Osmin. Assurance given of our on-going availability.
[2024-09-28 20:09] LABS: Glucose - Point of Care 401 mg/dl (70-99)
[2024-09-28] MEDS: LEVOPHED 258 MG IV ×2 (20:32→23:55)
[2024-09-28 21:11] LABS: Glucose - Point of Care 439 mg/dl (70-99)
--- NOTE | 2024-09-28 21:30 | PTCARENOTE ---
received from vickift RN. pt not purposeful or following, pupils b/l 3mm reactive. restraints in place. no sedation infusing. pt febrile to 105.7, ICU MUSIC ADAPTER aware, cooling blanket on, ice packs provided, damp sheet placed on patient, gown removed, fan
going in room. levo and vaso infusing at shift change, matthew gtt restarted to maintain MAP >65. levo gtt double concentrated per pharmacy. arterial line leveled and zeroed. ST on monitor w/ BBB. RLE>LLE edema. b/l femoral pulses noted with Doppler. #8
ETT, 27 at lip, adjusted to right side. vent settings AC 30/500/5/30%. minimal secretions, diminished breath sounds noted. NGT clamped @ 57cm. nicolas with minimal UOP. bicarb gtt continues, repeat BMP at 2200. DKA protocol continues with q1h
accuchecks. ICU MUSIC ADAPTER aware of high sugars, currently maintaining rate. sister updated at bedside, care ongoing at this time.
[2024-09-28 22:07] LABS: Glucose - Point of Care 398 mg/dl (70-99)
[2024-09-28 22:18] LABS: Blood Urea Nitrogen 48 mg/dl (9-20); Calcium 7.3 mg/dl (8.4-10.2); Carbon Dioxide 14 mmol/L (22-30); Chloride 111 mmol/L (98-107); Estimated Creatinine Clearance 42 ml/min; Glucose 380 mg/dl (70-99); Potassium 4.1 mmol/L (3.5-5.1); Sodium 139 mmol/L (135-145); eGFR 32.23
[2024-09-28 23:11] LABS: Glucose - Point of Care 426 mg/dl (70-99)
[2024-09-28] MEDS: HEPARIN 5000 UNITS SC (23:50)
[2024-09-29] VITALS: BP 109/53
[2024-09-29 00:19] LABS: Glucose - Point of Care 382 mg/dl (70-99)
--- NOTE | 2024-09-29 00:30 | PTCARENOTE ---
2330- pt upper and lower extremity mottling worsening. + DP pulse with doppler in LLE, absent DP and PT pulses in RLE. ICU CADD DRAFTER made aware and to bedside to assess. warmed RLE for 1 hour, attempted pulse check again. + PT pulse with Doppler, absent DP
pulse. ICU CADD DRAFTER aware. b/l leg US ordered at this time. no other changes noted in assessment.
--- NOTE | 2024-09-29 00:30 | PTCARENOTE ---
2330- pt upper and lower extremity mottling worsening. + DP pulse with doppler in LLE, absent DP and PT pulses in RLE. ICU BUNGHOLE BORER made aware and to bedside to assess. warmed RLE for 1 hour, attempted pulse check again. + PT pulse with Doppler, absent DP
pulse. ICU BUNGHOLE BORER aware. b/l leg US ordered at this time. no other changes noted in assessment. levo/vaso/matthew gtts continue to maintain MAP goal, see flowsheets. insulin gtt continues, ICU BUNGHOLE BORER aware of hourly sugars, no adjustments made to rate. minimal
UOP continues. oral care, CHG bath, nicolas care provided.
[2024-09-29 01:08] LABS: Glucose - Point of Care 338 mg/dl (70-99)
[2024-09-29] MEDS: SUBLIMAZE 25 MCG IV ×4 (02:00→18:12)
[2024-09-29 02:11] LABS: Blood Urea Nitrogen 50 mg/dl (9-20); Calcium 7.5 mg/dl (8.4-10.2); Carbon Dioxide 16 mmol/L (22-30); Chloride 113 mmol/L (98-107); Estimated Creatinine Clearance 37 ml/min; Glucose 265 mg/dl (70-99); Potassium 3.2 mmol/L (3.5-5.1); Sodium 141 mmol/L (135-145); eGFR 27.64
[2024-09-29 02:12] LABS: Glucose - Point of Care 313 mg/dl (70-99)
[2024-09-29] MEDS: KCL 100 IV (02:32)
[2024-09-29 03:09] LABS: Glucose - Point of Care 313 mg/dl (70-99)
[2024-09-29 04:12] LABS: Glucose - Point of Care 356 mg/dl (70-99)
[2024-09-29] MEDS: LEVOPHED 258 MG IV ×4 (04:17→19:08)
[2024-09-29 04:53] LABS: B.E. -4.7 mmol/L; HCO3 16.8 mmol/L (21-28); O2 Saturation % 98.7 % (94-98); PCO2 22 mmHg (35-48); PO2 109 mmHg (83-108); pH 7.49 (7.35-7.45)
[2024-09-29 04:55] LABS: O2 Therapy VENT
--- NOTE | 2024-09-29 05:00 | PTCARENOTE ---
AM labs sent. matthew gtt titrated, see flowsheet, levo/vaso gtts continue. R foot dressing with serosanguineous drainage. wound redressed per order. oral care provided, ETT adjusted. cooling blanket currently on monitor mode, core temp 98.8. pupils
remain reactive, pt with nonpurposeful movements. NGT to LIS per new order drainage black/brown. DKA insulin gtt continues, sugars trending down. care ongoing.
[2024-09-29 05:18] VITALS: BMI 33.5
[2024-09-29 05:18] LABS: Mean Corp Hgb Conc. 35.3 g/dL (33.0-37.0); Mean Corpuscular Hgb 29.7 pg (27.0-31.0); Mean Corpuscular Volume 84.2 fL (80.0-94.0); Mean Platelet Volume 11.4 fL (7.4-10.4); Platelet Count 44 10^3/uL (130-400); Red Blood Cell Count 4.04 10^6/uL (4.70-6.10); Red Cell Dist. Width 13.6 % (11.5-14.5); White Blood Cell Count 19.7 10^3/uL (4.8-10.8)
[2024-09-29 05:19] LABS: Glucose - Point of Care 251 mg/dl (70-99)
--- NOTE | 2024-09-29 05:19 | PTCARENOTE ---
morning weight 115.2kg, significant increase due to cooling blanket underneath patient
[2024-09-29] MEDS: NEO-SYNEPHRINE 250 IV (05:23)
[2024-09-29] MEDS: SODIUM BICARBONATE 1150 MEQ IV ×2 (05:30→14:58)
[2024-09-29 05:37] LABS: Vancomycin Random 19.1 ug/ml
[2024-09-29 05:49] LABS: Blood Urea Nitrogen 53 mg/dl (9-20); Calcium 7.4 mg/dl (8.4-10.2); Carbon Dioxide 18 mmol/L (22-30); Chloride 112 mmol/L (98-107); Estimated Creatinine Clearance 37 ml/min; Glucose 218 mg/dl (70-99); Phosphorus 0.8 mg/dl (2.5-4.5); Potassium 3.8 mmol/L (3.5-5.1); Sodium 140 mmol/L (135-145); eGFR 26.37
[2024-09-29 06:10] LABS: Glucose - Point of Care 251 mg/dl (70-99)
[2024-09-29] MEDS: POTASSIUM PHOSPHATE 259.0909 MEQ IV ×2 (06:17→17:03)
[2024-09-29] MEDS: NOVOLIN R INSULIN INFUSION 100 IV (07:57)
[2024-09-29 08:00] VITALS: BP 99/41
[2024-09-29] MEDS: NSS (PRESERVATIVE FREE) 10 ML IV ×2 (08:03→20:06)
[2024-09-29] MEDS: HEPARIN 5000 UNITS SC ×3 (08:03→23:13)
[2024-09-29] MEDS: PROTONIX IV 40 MG IV ×2 (08:03→20:06)
[2024-09-29] MEDS: ANCEF 10 IV ×2 (08:03→20:04)
[2024-09-29] MEDS: MIRALAX 17 GRAMS TUBE (08:03)
[2024-09-29] MEDS: DAKIN'S SOLUTION 0.125% 1/4 STRENGTH 1 ML TOPICAL (08:04)
--- NOTE | 2024-09-29 08:30 | PTCARENOTE ---
pt received from previous rn- ett to vent- see settings as charted, pt unarousable on no sedation, pupils 3 and reactive, withdrawals to pain at times and bites down on ett with oral care. plan of care discussed with Dr. Herbert. Dr. Arroyo aware
of absent right pedal, and bilateral radial pulses as well as minimal urine output. able to doppler bilateral pts, left pedal, and bilateral brachial pulses. pt mottled and dusky, fingers and toes dark purple to black in color. bilateral feet
dressings c/d/i. plan for pt to go to OR for debridement. turned and repositioned oral care provided. right radial freya zeroed and flushed- functioning properly. right picc flushes with blood return. all safety precautions in place.
--- NOTE | 2024-09-29 08:40 | PHA.VAN.FU ---
Vancomycin Assessment / Plan
- Assessment
Renal Function: SCR Increasing
WBC's are: Trending Up
In the past 24 hrs, patient has been: Febrile (tmax 105.7)
Concomitant Antimicrobials: cefazolin
- Assessment - Therapeutic Drug Monitoring
Random Level: 19.1 ~15 hours post 1500 mg dose (13 mg/kg)
- Dosing Plan
Continue: to dose by level
Dosing by Level: Hold off on dosing today
- Monitoring Plan
Random Level: 12/14 am
- Follow Up
Pharmacy will continue to follow.
Vancomycin Follow UP
- -
Patient Age: 31
Patient Sex: Male
Vancomycin Day #: 3
Indication: Skin And Soft Tissue (+bacteremia + possible PNA)
Requesting Provider: BALBIR Momin
Pertinent Antimicrobial Allergies:
ceftriaxone Allergy - Nausea / Vomiting, Hepatitis
Height / Weight:
Height 6 ft 1 in
Actual Weight 115.2 kg
Pertinent Past Medical History: DM, DKA, bilateral toe amputation
- Vital Signs / Lab Results
Temp Pulse Resp BP Pulse Ox
99.5 F 114 30 109/53 100
09/29/24 08:17 09/29/24 07:00 09/29/24 07:00 09/29/24 00:00 09/29/24 08:00
Lab Results - Hematology
09/27/24 09/28/24 09/29/24
21:46 01:41 04:46
WBC 13.7 H 14.8 H 19.7 H
Band Neutrophils 10 H
Lab Results - Chemistry
09/27/24 09/27/24 09/28/24
21:46 23:04 00:30
BUN 23 H 24 H Cancelled
Creatinine 1.1 1.2 Cancelled
Estimated Creat Clear Cancelled
Albumin 2.8 L
09/28/24 09/28/24 09/28/24
01:41 03:15 04:00
BUN 25 H Cancelled Cancelled
Creatinine 1.2 Cancelled Cancelled
Estimated Creat Clear 77 Cancelled Cancelled
Albumin
09/28/24 09/28/24 09/28/24
04:15 05:24 05:24
BUN Cancelled 31 H Cancelled
Creatinine Cancelled 1.5 H
Estimated Creat Clear Cancelled
Albumin
09/28/24 09/28/24 09/28/24
05:24 05:24 07:54
BUN 32 H
Creatinine Cancelled 1.9 H
Estimated Creat Clear 62 Cancelled 49
Albumin 2.3 L
09/28/24 09/28/24 09/28/24
08:00 10:39 11:29
BUN Cancelled 37 H 39 H
Creatinine Cancelled 1.9 H 1.8 H
Estimated Creat Clear Cancelled 49 52
Albumin
09/28/24 09/28/24 09/28/24
12:00 12:00 12:00
BUN Cancelled Cancelled
Creatinine Cancelled Cancelled
Estimated Creat Clear Cancelled
Albumin
09/28/24 09/28/24 09/28/24
12:00 14:00 16:00
BUN Cancelled Cancelled
Creatinine Cancelled Cancelled
Estimated Creat Clear Cancelled Cancelled Cancelled
Albumin
09/28/24 09/28/24 09/28/24
16:34 17:56 20:00
BUN 45 H 45 H Cancelled
Creatinine 2.0 H 2.0 H Cancelled
Estimated Creat Clear 46 46 Cancelled
Albumin
09/28/24 09/29/24 09/29/24
21:43 01:41 01:46
BUN 48 H 50 H Cancelled
Creatinine 2.2 H 2.5 H Cancelled
Estimated Creat Clear 42 37 Cancelled
Albumin Cancelled
09/29/24
04:46
BUN 53 H
Creatinine 2.6 H
Estimated Creat Clear 37
Albumin
09/27/24 09/28/24 09/28/24
21:47 01:41 05:24
Lactic Acid 2.3 H 2.2 H 1.8
09/28/24 09/28/24
10:00 14:00
Lactic Acid Cancelled Cancelled
Microbiology Results
09/27/24 21:46 Blood Culture - Preliminary
Blood/Venous Staphylococcus aureus
Gram Stain - Final
09/27/24 21:46 Blood Culture - Preliminary
Blood/Venous Staphylococcus aureus
Gram Stain - Final
09/28/24 13:36 Blood Culture - Preliminary
Blood/Venous Positive culture in progress
Gram Stain - Preliminary
09/28/24 13:36 Blood Culture - Preliminary
Blood/Venous Positive culture in progress
Gram Stain - Preliminary
09/28/24 01:41 MRSA Screen - Final
Nose No Methicillin Resistant Staphylococcus aureus isolated.
09/27/24 21:49 Gram Stain - Preliminary
Foot - Right
09/27/24 21:47 Influenza Types A & B (MIRANDA) - Final
Nasal Swab Negative for Influenza A & B, NAAT
Negative results must be combined with clinical observations
and patient history.
Nucleic Acid Amplification test (NAAT)performed on the
[employer] platform.
Therapeutic Drug Monitoring
Random Vancomycin 19.1 ug/ml 09/29/24 04:46
[2024-09-29] MEDS: PITRESSIN 100 IV ×2 (09:00→20:04)
[2024-09-29 09:09] LABS: Glucose - Point of Care 262 mg/dl (70-99)
[2024-09-29 09:09] LABS: Glucose - Point of Care 207 mg/dl (70-99)
[2024-09-29 09:15] LABS: Glucose - Point of Care 191 mg/dl (70-99)
--- NOTE | 2024-09-29 10:08 | W.PN.UPDATE ---
Update Note
Progress Note Update
Patient scheduled for b/l heel I & D with debridement today at 2pm by podiatry. D/W Dr. Griffin about the plan and medical clearance for the procedure.
[2024-09-29 10:15] LABS: Glucose - Point of Care 178 mg/dl (70-99)
--- NOTE | 2024-09-29 10:34 | W.PN.HOSP.TC ---
Today's Communication/Plan
-
Remains critically ill.
Has been off sedation. Monitor for neurologic recovery
Podiatry for I&D of the right foot wound
Continue antibiotics
Continue ventilatory support
Continue vasopressor support.
Continue insulin drip
Goals of care discussions
Total Critical Care Time_45____ minutes. I was immediately available to the patient and staff. I personally examined, reviewed labs, diagnostic images/reports, interpretations, treatment plans, discussed patient care with other providers and
family or caregivers (if patient is unable to make decisions), entered orders as appropriate and documented the medical record.
Assessment / Plan
Assessment / Plan
Impression:
Severe sepsis with multiple organ failure
Septic shock with hypotension not responding to IV fluid bolus and requiring multiple pressors.
Gram-positive bacteremia
Left lower lobe infiltrate suspected community-acquired pneumonia
Right foot chronic wound
VDRF.
� Intubated 09/27 in the settings of metabolic encephalopathy and hemodynamic instability.
PEA arrest.
Toxic metabolic encephalopathy in the settings of severe shock and acidosis.
Metabolic acidosis/DKA.
Acute kidney injury
Profound hypokalemia
Reported gastrointestinal illness days prior to presentation
Conditions prior to admission:
IDDM.
Essential hypertension.
Diabetic neuropathy.
Dyslipidemia.
Obesity with BMI of 30.
Chronic right foot wound/Charcot foot.
Plan:
Severe sepsis with septic shock not responding to IV fluid bolus requiring multiple pressors.
Blood culture with gram-positive cocci in clusters 2/2 likely sourced from right foot chronic wound
Chest x-ray with left lower lobe infiltrate concern for community-acquired pneumonia.
X-ray of the right foot with extensive soft tissue edema with no evidence of osteomyelitis
X-ray of the left foot concern for new 5.7 mm erosion in the lateral fifth metatarsal head
Echocardiogram 09/28 with concern for mitral valve vegetation
Antibiotics adjusted to vancomycin/cefazolin
Podiatry with plan for surgical I&D of the wound
May need LOKI for further assessment for vegetation
Status post PEA arrest
Remains severely hypotensive
Continue aggressive IV fluid resuscitation with sodium and bicarbonate.
Currently requires multiple pressors including norepinephrine, phenylephrine, epinephrine.
VDRF.
Intubated with toxic metabolic encephalopathy and hemodynamic instability.
Continue sedation with fentanyl
Toxic metabolic encephalopathy.
Currently post PEA arrest.
High clinical suspicion for anoxic brain injury.
Monitor closely for neurologic recovery while off sedation
CT head
Consider neurology evaluation
DKA.
Severe metabolic acidosis ABG: pH 6.9
Hemoglobin A1c 12
Continue insulin drip with serial Accu-Cheks
Acute kidney injury in the settings of profound hypotension/prerenal stimuli.
Mckee catheter.
IV fluid with bicarbonate ongoing.
Pressor support with goal of MAP 55-60
Serial BMP
Essential hypertension.
Dyslipidemia
Diabetic neuropathy
Full code.
DVT prophylaxis Lovenox
Anticipated Discharge: > 48 hours
Subjective/Interval History
-
Date of Service: September 29, 2024
Objective Data
-
Labs:
Laboratory Results
09/29/24 09/29/24 09/29/24
01:41 01:46 04:46
WBC 19.7 H
Hgb 12.0 L
Hct 34.0 L
Plt Count 44 L D
HCO3 16.8 L
Sodium 141 Cancelled 140
Potassium 3.2 L Cancelled 3.8
Chloride 113 H Cancelled 112 H
Carbon Dioxide 16 L Cancelled 18 L
BUN 50 H Cancelled 53 H
Creatinine 2.5 H Cancelled 2.6 H
Glucose 265 H Cancelled 218 H
Calcium 7.5 L Cancelled 7.4 L
Total Bilirubin Cancelled
AST Cancelled
ALT Cancelled
Alkaline Phosphatase Cancelled
09/29/24
14:00
WBC
Hgb
Hct
Plt Count
HCO3
Sodium Pending
Potassium Pending
Chloride Pending
Carbon Dioxide Pending
BUN Pending
Creatinine Pending
Glucose Pending
Calcium Pending
Total Bilirubin
AST
ALT
Alkaline Phosphatase
Vital Signs:
Vital Signs
Temp Pulse Resp BP Pulse Ox
99.5 F 118 26 99/41 100
09/29/24 08:17 09/29/24 09:30 09/29/24 09:30 09/29/24 08:00 09/29/24 09:34
I&O
09/28/24 09/29/24 09/30/24
06:59 06:59 06:59
Intake Total 1274.0 / 1854.5 8343.7 / 8525.0 719.2 / 719.2
Output Total 409 / 439 339 / 493 163 / 163
Balance 865.0 / 1415.5 8004.7 / 8032.0 556.2 / 556.2
Physical Exam
-
General: Well Developed and Other (Sedated, intubated.)
HEENT: Normocephalic, Atraumatic, Moist Mucous Membranes and Other (ET tube in place with clear secretions)
Respiratory: Decreased Breath Sounds; Negative Wheezes
Cardiac: Regular Rhythm, S1/S2 and Tachycardic; Negative Murmur, Rub or Gallop
GI: Soft, Nontender, Nondistended and Normal Bowel Sounds; Negative Organomegaly
Rectal: Deferred by Provider
Musculoskeletal: No Clubbing, No Cyanosis and No Edema
Skin: Negative Rash
Neuro: Sedated and Nonfocal/Grossly Intact
--- NOTE | 2024-09-29 11:10 | W.PN.ID1 ---
Addendum entered and electronically signed by Sobia Barreto MD 09/29/24 15:24:
I saw and evaluated the patient. I reviewed the resident�s note and agree with findings and plan as documented in the resident�s note.
# Staph aureus (probably MSSA) bacteremia, sustained
# Suspect infective endocarditis
TTE: 1 cm x 0.8 cm echodensity on MV
# Left heel unstageable wound - likely source
# Septic shock with multi-organ failure , on 3 pressors
Worse YUE, leukocytosis, fevers
# s/p cardiac arrest x 2
# DM with DKA
# Obtunded
-Repeat blood cx's until clear
- For CT of head to assess for septic emboli vs anoxic brain injury vs diabetic coma
-LOKI when stable
- Continue cefazolin 2g IV q12H (d2) for suspected MSSA
- Continue Vancomycin (d3) for now pending culture data
Follow vancomycin level closely
- Continue ICU support
-Trend fever curve, vitals, wbc
- Prognosis poor.
Updated family at bedside. Pt critically ill.
Case discussed with Dr. Arroyo and Dr. Griffin
Original Note:
Date of Service
Date of Service: September 29, 2024
Today's Communication
.
Assessment / Plan
Assessment/plan
# Staph aureus bacteremia
#Chronic wound of right foot
#Gram-positive bacteremia
# PEA arrest
# Respiratory failure
-Intubated and sedated 09/27
#Septic shock requiring multiple pressors
-Blood cultures with gram-positive cocci in clusters x2
-Follow cultures until clear
-Continue on Vancomycin/cefazolin for MSSA.
-Recommend I&D for chronic right foot wound
-echocardiogram 09/28 for concerns for mitral valve vegetation.
-Follow wbc, temperature.
Vital Signs / Physical Exam
Vital Signs
Vital Signs
Temp Pulse Resp BP Pulse Ox
99.5 F 118 26 99/41 100
09/29/24 08:17 09/29/24 09:30 09/29/24 09:30 09/29/24 08:00 09/29/24 09:34
Physical Exam
Constitutional: Other (Intubated and sedated)
Cardiovascular: Irregular Rate and S1/S2
Pulmonary: Other (Decreased breath sounds bilaterally)
Gastrointestinal: Soft, Non Tender and Non Distended
Objective Data
Lab Data
Lab Results
09/29/24 04:46
PT 18.1 Sec (11.4-14.6) H 09/28/24 01:41
INR 1.44 09/28/24 01:41
APTT 35.6 Sec (23.4-35.0) H 09/28/24 01:41
Estimated Creat Clear 37 ml/min 09/29/24 04:46
Lactic Acid Cancelled 09/28/24 14:00
Total Bilirubin Cancelled 09/29/24 01:46
AST Cancelled 09/29/24 01:46
ALT Cancelled 09/29/24 01:46
Alkaline Phosphatase Cancelled 09/29/24 01:46
Most recent labs reviewed.
Micro Results:
09/27/24 21:49 Wound Culture - Preliminary
Foot - Right Gram Stain - Preliminary
09/27/24 21:46 Blood Culture - Preliminary
Blood/Venous Staphylococcus aureus
Gram Stain - Final
09/27/24 21:46 Blood Culture - Preliminary
Blood/Venous Staphylococcus aureus
Gram Stain - Final
09/28/24 13:36 Blood Culture - Preliminary
Blood/Venous Positive culture in progress
Gram Stain - Preliminary
09/28/24 13:36 Blood Culture - Preliminary
Blood/Venous Positive culture in progress
Gram Stain - Preliminary
09/28/24 01:41 MRSA Screen - Final
Nose No Methicillin Resistant Staphylococcus aureus isolated.
09/27/24 21:47 Influenza Types A & B (MIRANDA) - Final
Nasal Swab Negative for Influenza A & B, NAAT
Negative results must be combined with clinical observations
and patient history.
Nucleic Acid Amplification test (NAAT)performed on the
[employer] platform.
11/28/2023 chest x-ray; Left basilar pneumonia.
[2024-09-29 11:13] LABS: Glucose - Point of Care 161 mg/dl (70-99)
[2024-09-29] MEDS: OFIRMEV 100 IV (12:01)
[2024-09-29 12:17] LABS: Glucose - Point of Care 155 mg/dl (70-99)
--- NOTE | 2024-09-29 12:23 | PTCARENOTE ---
assessment unchanged. continues on glycemic protocol. turned and repositioned oral care provided. weaning pressors as tolerated.
[2024-09-29 13:05] LABS: Glucose - Point of Care 153 mg/dl (70-99)
--- NOTE | 2024-09-29 13:16 | W.PN.INTV ---
Today's Communication / Plan
Recommendations
Mechanical ventilation adjusted
Continue bicarbonate drip, repeat BMP later today.
Continue antibiotics
Follow cultures
For debridement of the right leg today
Eventual LOKI
Obtain CT head
Obtain EEG
Eventual MRI
Follow renal function and electrolytes
Prognosis is poor
Assessment
-
64-year-old man with history of insulin-dependent diabetes, bilateral toe amputation, multiple other comorbidities, admitted with profound metabolic acidosis, change in mental status, developed progressive respiratory failure recurrent intubation.
The morning of 09/28/2024 developed cardiorespiratory arrest requiring CPR x 2. Patient in shock multiple vasopressors, on mechanical ventilation.
Cardiorespiratory arrest likely due to profound metabolic acidosis
CPR x 2 09/28/2024
septic shock-source likely right foot wound.
Hypercapnic respiratory failure recurrent intubation.
DKA-profound metabolic acidosis.
Profound hypokalemia
Encephalopathy: Cannot rule out anoxic brain injury.
Conditions present prior admission:
Hyperlipidemia
Peripheral vascular disease
Hypertension
Peripheral neuropathy-Charcot foot
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
Former smoker
Assessment and plan:
Patient is critically ill, on multiple vasopressors, intubated, sedated.
-
Status post cardiorespiratory arrest. Suspect trigger was profound metabolic acidosis.
CPR x 2. Regained ROSC post CPR for about 2 to 3 minutes twice.
Remains unresponsive-has respiratory effort without sedation.
Occasional respiratory effort/nystagmus with equal pupils/occasional opens eyes-not responsive to verbal stimuli
Continue with supportive care.
CT head today rule out ischemic injury/septic emboli etc.
EEG will be ordered as well
Eventual MRI
-
Septic shock suspected: Bacteremia with a staff aureus noted. Persistent blood cultures 09/29/2024.
Suspect source from his right foot.
Patient for debridement today per podiatry.
Chest x-ray unrevealing: ET tube in place. Suspect subsegmental atelectasis. Cannot rule out an aspiration event either.
Continue current antibiotics per ID.
Follow culture identification-staff aureus.
Continue to monitor blood cultures
Possible endocarditis by echocardiogram. Eventual LOKI
-
Continue vasopressors -norepinephrine and Nishant-Synephrine to target mean arterial blood pressure 65 mmHg.
Epinephrine discontinued
Lactic acid trending lower.
Unfortunately renal function worsening
Mckee in place with declining urinary output.
-
Metabolic acidosis improved: Continue bicarbonate drip for now
Repeat BMP at 2 PM, if CO2 greater than 20 will discontinue bicarbonate drip.
ABG showed compensated metabolic acidosis 09/29/2024.
Continue to monitor electrolytes
Phosphorus will be repleted
-
Hyperglycemia: DKA resolved.
Continue insulin drip. Target 100 4180.
-
Mechanical ventilation settings reviewed.
Pulmonary mechanics are adequate.
FiO2 40%.
No significant secretions on ET tube.
ABG noted with respiratory alkalosis and metabolic acidosis.
Respiratory rate has been adjusted.
And appears comfortable mechanical ventilation with very occasional sedation
-
Acute kidney injury due to hypotensive insult. Worsening.
Mckee in place
Continue with hemodynamic support
Hypokalemia: Resolved.
Continue to monitor
-
N.p.o.
Head of the bed elevation
IV Protonix for GI prophylaxis
Lovenox for DVT prophylaxis
-
Case has been discussed with primary team, infectious disease in detail.
Dr. Arroyo updated children at the bedside 09/29/2024. Poor prognosis. Suspected brain injury. They state that Juanis's sister will make decisions. For now continue with full care.
-
Dr. Arroyo updated daughter personally in the hospital, critical situation, high risk of she understands. I have asked her to bring family at the bedside.
For now continue with full support. Apparently patient would not want prolonged mechanical ventilation or life sustaining measures if there is no chance of a good quality of life.
-
Critical care statement: A total of 81 minutes of critical care time was provided for this patient today. This includes management of unstable vital signs, evaluation of the patient at bedside, reviewing the patient's pertinent medical records
including ventilator settings, arterial blood gases, radiographs, microbiology, laboratory evaluations and discussion with primary team, critical care nursing, and respiratory therapy.
Subjective Dataa
Subjective Data
Date of Service:
Date of Service: September 29, 2024
Chief Complaint: [employer] Follow Up (Septic shock/hypercapnic respiratory failure)
Subjective:
Critically ill, intubated and on mechanical ventilation
Unable to provide history
Remains on vasopressors
Review of Systems
General: Unobtainable - Pat Unresp
Objective Data
Data Reviewed
Vital Signs / I&O / Oxygen:
Vital Signs
Temp Pulse Resp BP Pulse Ox
100.4 F H 122 22 99/41 100
09/29/24 12:14 09/29/24 12:15 09/29/24 12:15 09/29/24 08:00 09/29/24 12:15
Intake and Output
09/28/24 09/29/24 09/30/24
06:59 06:59 06:59
Intake Total 1274.0 / 1854.5 8343.7 / 8525.0 1305.0 / 1305.0
Output Total 409 / 439 339 / 493 190 / 190
Balance 865.0 / 1415.5 8004.7 / 8032.0 1115.0 / 1115.0
SaO2 [A/C] 100
SaO2 100
Nasal Cannula flow liters per 2
minute
Physical Exam
General: Comfortable
HEENT: Normocephalic
Cardiovascular: S1-S2
Respiratory: Non-Labored Respirations and ET Tube (No significant secretion)
GI: Soft and Non Distended
Neurology: Other (Nonresponsive, off sedation-occasional respiratory effort. Nystagmus noted.)
Skin: Other (Bilateral toes amputation.) and Other (Right foot is dressed.)
Labs/Micro/Reports
Status post 2 amputation lab Data
09/29/24 04:46
Laboratory Results
09/28/24 09/29/24
13:36 04:46
pH 7.36 7.49 H
pCO2 19 L 22 L
pO2 146 H 109 H
HCO3 10.7 L* 16.8 L
O2 Delivery Level Not Reportable Vent
Microbiology
09/27/24 21:49 Foot - Right Wound Culture - Preliminary
09/27/24 21:49 Foot - Right Gram Stain - Preliminary
09/27/24 21:46 Blood/Venous Blood Culture - Preliminary
Staphylococcus aureus
09/27/24 21:46 Blood/Venous Gram Stain - Final
09/27/24 21:46 Blood/Venous Blood Culture - Preliminary
Staphylococcus aureus
09/27/24 21:46 Blood/Venous Gram Stain - Final
09/28/24 13:36 Blood/Venous Blood Culture - Preliminary
Positive culture in progress
09/28/24 13:36 Blood/Venous Gram Stain - Preliminary
09/28/24 13:36 Blood/Venous Blood Culture - Preliminary
Positive culture in progress
09/28/24 13:36 Blood/Venous Gram Stain - Preliminary
09/28/24 01:41 Nose MRSA Screen - Final
No Methicillin Resistant Staphylococcus aureus isolated.
09/27/24 21:47 Nasal Swab Influenza Types A & B (MIRANDA) - Final
Negative for Influenza A & B, NAAT
Negative results must be combined with clinical observations
and patient history.
Nucleic Acid Amplification test (NAAT)performed on the
[employer] platform.
--- NOTE | 2024-09-29 13:46 | PN.DE.MGMTRT ---
Insulin Management
- -
09/29/2024 Diabetes Management Consult
Patient admitted 09/27 with fever chills nausea and vomiting, wound R foot, change in mental status, found to be in DKA. PMH HTN, HLD, diabetes, bilateral toe amputations. Prior to admission was taking 70/30 40 units BID with Regular insulin 5
units AC. A1C 12%, cr 2.6, eGFR 26.37, GAP as high as 31, as of this AM 10 or less times 2.
Patient was on DKA protocol, GAP closed x 2 this AM. Patient is critically ill, on ventilator. Will transition to glycemic protocol.
Patient is unable to interview.
Discussed with patients nurse.
Diabetes History
- -
Type of Diabetes: 2 requiring insulin
Pre-Admission Diabetes Regimen
09/28/24 09/28/24 09/28/24
16:34 17:56 21:43
Creatinine 2.0 H 2.0 H 2.2 H
09/29/24 09/29/24 09/29/24
01:41 01:46 04:46
Creatinine 2.5 H Cancelled 2.6 H
Lab Results
Hemoglobin A1c 12.0 % (4.0-5.6) H 09/27/24 23:04
Insulin Pump Settings
IP Diabetes Regimen
09/28/24 09/28/24 09/28/24
13:57 15:03 15:58
Glucose
POC Glucose 427 H 452 H* 439 H
09/28/24 09/28/24 09/28/24
16:34 16:57 17:10
Glucose 474 H*
POC Glucose 415 H 515 H*
09/28/24 09/28/24 09/28/24
17:56 18:17 18:57
Glucose 467 H*
POC Glucose 392 H 448 H
09/28/24 09/28/24 09/28/24
19:58 21:00 21:43
Glucose 380 H
POC Glucose 401 H 439 H
09/28/24 09/28/24 09/29/24
21:56 23:00 00:08
Glucose
POC Glucose 398 H 426 H 382 H
09/29/24 09/29/24 09/29/24
00:57 01:41 01:46
Glucose 265 H Cancelled
POC Glucose 338 H
09/29/24 09/29/24 09/29/24
02:00 02:58 04:01
Glucose
POC Glucose 313 H 313 H 356 H
09/29/24 09/29/24 09/29/24
04:46 05:08 05:58
Glucose 218 H
POC Glucose 251 H 251 H
09/29/24 09/29/24 09/29/24
06:48 07:52 08:59
Glucose
POC Glucose 262 H 207 H 191 H
09/29/24 09/29/24 09/29/24
10:04 11:01 11:57
Glucose
POC Glucose 178 H 161 H 155 H
09/29/24
12:54
Glucose
POC Glucose 153 H
Patient Education
--- NOTE | 2024-09-29 14:24 | CM ---
M following rte: discharge planning.
Discussed in Rounds, reviewed pt's chart, met with pt. Per Rounds meeting, pt remains intubated, requiring multiple pressors, continue supportive care.
Pt lives with mother and a sister in a 2 story home, 2 steps to enter. Patient has walker, rolling walker, cane, knee scooter, wheelchair. No VN or Skilled rehab in the past. Patient works and drives. Pt was doing wound care by himself and refused
to have VN services and per sister did not see a Dr. Pt is a professor at [employer].
D/C plan: uncertain at this time and will depend on pt's progress.
CM will follow with discharge plan updates as hospitalization progresses
--- NOTE | 2024-09-29 14:26 | PTCARENOTE ---
pt temp up to 101.3 despite cooling blanket and ofsalvatoreev, Dr. Arroyo aware, no new orders.
[2024-09-29 15:08] LABS: Glucose - Point of Care 150 mg/dl (70-99)
[2024-09-29 15:33] LABS: Blood Urea Nitrogen 59 mg/dl (9-20); Carbon Dioxide 22 mmol/L (22-30); Chloride 110 mmol/L (98-107); Estimated Creatinine Clearance 36 ml/min; Glucose 158 mg/dl (70-99); Phosphorus 1.1 mg/dl (2.5-4.5); Potassium 3.6 mmol/L (3.5-5.1); Sodium 139 mmol/L (135-145)
--- NOTE | 2024-09-29 16:00 | PTCARENOTE ---
podiatry md at bedside- completed bilateral feet wound care
--- NOTE | 2024-09-29 16:12 | W.PN.POD ---
Today's Communication
Today's Communication
No further surgical intervention by podiatry
Assessment / Plan
-
Infected diabetic foot ulcers
LT plantar eschar and Rt plantar ulcer with large soft tissue defect in the middle of the arch.
Rt foot Charcot deformity
Septic shock.
Bacteremia
Hypokalemia.
Plan : Since patient is intubated and complex condition, preformed bed side debridement of LT heel exploration, which showed no purulence, No Signs of any active drainage, intact eschar noted
Rt heel large soft tissue defect, no deep tissue purulence, no signs of any active drainage. Obtained cultures, applied dakins wet to dry gauze and Taryn.
Cont IV abx
Though heel ulcers could be the source , since there is nothing much to drain the ulcer sites,
podiatry will be o board for any further assistance.
For now abx and local wound care to be continued
Subjective
Chief Complaint
Sepsis, b/l Chronic, non healing , plantar ulcers
Subjective
Pt seen in ICU, intubated, unresponsive. high fever,
Objective
Temp Pulse Resp BP Pulse Ox
100.8 F H 124 23 99/41 99
09/29/24 16:06 09/29/24 14:15 09/29/24 14:15 09/29/24 08:00 09/29/24 15:05
09/29/24 04:46
09/29/24 14:58
Vital Signs and Lab results were reviewed.
b/l pedal pulses dopplerable
B/L feet no edema, no duskiness
LT heel eschar dry, clean, no active purulence, no foul odor, There is minimal local erythema noted. No signs of any drainage noted
Rt plantar aspect with large soft tissue defect, granular ulcer , doses not probe to bone, no visible bone, no purulence noted. Local erythema noted.
[2024-09-29] MEDS: NSS 1000 IV (17:04)
[2024-09-29 17:22] LABS: Glucose - Point of Care 136 mg/dl (70-99)
--- NOTE | 2024-09-29 17:26 | PTCARENOTE ---
eeg completed, pt taken to ct scan. assessment unchanged. turned and repositioned. weaning levo as tolerated.
--- NOTE | 2024-09-29 17:37 | W.PN.UPDATE ---
Update Note
Progress Note Update
Multiple bedside evaluations by me. Discussed with podiatry. Status post bedside debridement.
Remains febrile.
Remains in shock
Acidosis improved: Will discontinue bicarbonate drip. Transition to normal saline
Electrolytes repleted
Will continue to titrate down vasopressors to maintain mean arterial blood pressure 65 mmHg.
-
CT of the head performed this afternoon, reviewed by me.
Unfortunately, multiple strokes including a large left parietal stroke. Bilateral smaller one suggest embolic. Could be septic emboli.
I personally updated his sister who is the power of relations coordinator regarding new finding. Unlikely that this patient will recover neurologically from this.
She expressed that the patient would not want to continue with this as he categorically did not want to be on prolonged mechanical ventilation, tracheotomy etc.
Will establish DNR status.
She will discuss with rest of the family regarding next step, I recommend comfort measures.
At this point we will not perform any more procedures or escalate therapy. Continue with current care only.
Additional critical care time 30 minutes
[2024-09-29 18:05] LABS: Glucose - Point of Care 136 mg/dl (70-99)
--- NOTE | 2024-09-29 19:11 | EEGC.RPT ---
Continuous EEG Report
Recording
Start Date of Data Reviewed: 09/29/24
Done with Video Recording: Yes
Electrocardiogram: Unremarkable
Report
�TECHNICAL REMARKS:��This is a technically satisfactory eighteen channel record employing 21 disc electrodes applied according to a measured international 10-20 electrode placement system.��There were no significant technical difficulties.��The
study was done on a [employer] System.
STUDY DURATION: 22 min, 22 sec.
MEDICATIONS: Fentanyl PRN
CLINICAL HISTORY: This is a 64 year old man with encephalopathy. This study was requested to look for epileptiform activity.
REPORT: �At the onset of the EEG, the patient is in altered mental status. The background activity on the left consists of 3-4 Hz, impersistent, posteriorly dominant, moderate in amplitude, asymmetric, and rhythmic activity. Continuous left greater
then right hemispheric 2-3 Hz at times sharply contoured ( mostly in the left temporal region) slowing is present. Stepwise intermittent photic stimulation (1-31 Hz) did not induce any additional abnormalities. Hyperventilation was not performed.
Intermittent generalized attenuation lasting for 1-1.5 seconds is present.
IMPRESSION: �This is an abnormal EEG recorded in the patient with altered mental status due to a moderate to severe left greater than right generalized slowing. This finding indicates diffuse cerebral dysfunction, nonspecific in terms of etiology.
[2024-09-29 19:16] LABS: Glucose - Point of Care 117 mg/dl (70-99)
--- NOTE | 2024-09-29 19:39 | PTCARENOTE ---
On assessment pt intubated and unresponsive on no sedation, periods of non purposeful movements noted, PRN meds available, on LEvo, vaso, and insulin gtt see MAR, absent radial pulses and absent R pedal pulse, doppler pulses to b/l PTs and L pedal,
cooling blanket is currently off, temp 99.9 core, skin cool and mottled, fingers and toes dark purple and cold to the touch, b/l foot dressings c/d/i, R radial Shan zeroed and flushed.
[2024-09-29 20:22] LABS: Glucose - Point of Care 113 mg/dl (70-99)
[2024-09-29 21:41] LABS: Glucose - Point of Care 110 mg/dl (70-99)
[2024-09-29 23:28] LABS: Glucose - Point of Care 99 mg/dl (70-99)
--- NOTE | 2024-09-30 | PTCARENOTE ---
PATRICIO on the floor to assess pt, family arrived to stay overnight, no other changes at this time
[2024-09-30] MEDS: SUBLIMAZE 25 MCG IV (00:06)
[2024-09-30] MEDS: LEVOPHED 258 MG IV ×2 (00:13→07:23)
[2024-09-30] MEDS: NSS 1000 IV (00:14)
[2024-09-30] MEDS: NOVOLIN R INSULIN INFUSION 100 IV (01:28)
[2024-09-30 01:33] LABS: Glucose - Point of Care 145 mg/dl (70-99)
[2024-09-30 02:37] LABS: Glucose - Point of Care 132 mg/dl (70-99)
[2024-09-30 04:05] LABS: B.E. -3.6 mmol/L; HCO3 17.5 mmol/L (21-28); O2 Saturation % 98.7 % (94-98); PCO2 21 mmHg (35-48); PO2 132 mmHg (83-108); pH 7.53 (7.35-7.45)
[2024-09-30 04:19] LABS: Glucose - Point of Care 112 mg/dl (70-99)
[2024-09-30 04:36] LABS: Hematocrit 30.5 % (39.0-52.0); Hemoglobin 10.7 g/dL (13.0-18.0); Mean Corp Hgb Conc. 35.1 g/dL (33.0-37.0); Mean Corpuscular Hgb 29.3 pg (27.0-31.0); Mean Corpuscular Volume 83.6 fL (80.0-94.0); Mean Platelet Volume 12.3 fL (7.4-10.4); O2 Therapy VENT; Platelet Count 34 10^3/uL (130-400); Red Blood Cell Count 3.65 10^6/uL (4.70-6.10); Red Cell Dist. Width 13.8 % (11.5-14.5); White Blood Cell Count 25.3 10^3/uL (4.8-10.8)
--- NOTE | 2024-09-30 04:36 | PTCARENOTE ---
Cooling blanket restarted around 0230 temp 101 core, unable to obtain BC x2, attempted with RN x2 and was unsuccessful, BINDERY MACHINE SETTER aware, will pass along to dayshift RN, no lab at this time. PATRICIO called for update and will discuss comfort care with sister in
the AM.
[2024-09-30 04:54] LABS: Vancomycin Random 16.8 ug/ml
[2024-09-30] MEDS: PITRESSIN 100 IV (05:26)
[2024-09-30 05:29] VITALS: BMI 35.4
[2024-09-30 05:35] LABS: Blood Urea Nitrogen 65 mg/dl (9-20); Calcium 6.5 mg/dl (8.4-10.2); Carbon Dioxide 19 mmol/L (22-30); Chloride 114 mmol/L (98-107); Estimated Creatinine Clearance 31 ml/min; Glucose 110 mg/dl (70-99); Phosphorus 1.8 mg/dl (2.5-4.5); Potassium 3.8 mmol/L (3.5-5.1); Sodium 143 mmol/L (135-145); eGFR 20.56
[2024-09-30 06:19] LABS: Glucose - Point of Care 95 mg/dl (70-99)
[2024-09-30] MEDS: CALCIUM GLUCONATE 290 MG IV (06:52)
[2024-09-30] MEDS: MIRALAX 17 GRAMS TUBE (07:23)
[2024-09-30] MEDS: HEPARIN 5000 UNITS SC (07:23)
[2024-09-30] MEDS: PROTONIX IV 40 MG IV (07:23)
[2024-09-30] MEDS: ANCEF 10 IV (07:23)
[2024-09-30] MEDS: NSS (PRESERVATIVE FREE) 10 ML IV (07:23)
[2024-09-30] MEDS: POTASSIUM PHOSPHATE 259.0909 MEQ IV (07:24)
[2024-09-30] MEDS: DAKIN'S SOLUTION 0.125% 1/4 STRENGTH 473 ML TOPICAL (07:40)
[2024-09-30 07:57] LABS: Glucose - Point of Care 112 mg/dl (70-99)
--- NOTE | 2024-09-30 08:03 | PHA.VAN.FU ---
Vancomycin Assessment / Plan
- Assessment
Renal Function: SCR Increasing (2.7-> 3.2)
WBC's are: Trending Up (19.7->25.3)
In the past 24 hrs, patient has been: Febrile (max temp 101.4 09/30/24 03:13)
Concomitant Antimicrobials: cefazolin
- Assessment - Therapeutic Drug Monitoring
Random Level: 16.8 - last vanc 09/28/24 1400
Calculated half life (H): between last 2 random levels ~ 125 h
- Dosing Plan
Continue: dose by random level
Dosing by Level: Hold off on dosing today (worsening renal function)
- Monitoring Plan
Random Level: repeat random level AM 10/01
- Follow Up
Pharmacy will continue to follow.
Vancomycin Follow UP
- -
Patient Age: 31
Patient Sex: Male
Vancomycin Day #: 4
Indication: Skin And Soft Tissue (+bacteremia + possible PNA)
Requesting Provider: BALBIR Momin
Pertinent Antimicrobial Allergies:
ceftriaxone Allergy - Nausea / Vomiting, Hepatitis
Height / Weight:
Height 6 ft 1 in
Actual Weight 121.7 kg
Pertinent Past Medical History: DM, DKA, bilateral toe amputation
- Vital Signs / Lab Results
Temp Pulse Resp BP Pulse Ox
99.8 F 112 23 99/41 100
09/30/24 07:52 09/30/24 06:00 09/30/24 06:00 09/29/24 08:00 09/30/24 07:41
Lab Results - Hematology
09/27/24 09/28/24 09/29/24
21:46 01:41 04:46
WBC 13.7 H 14.8 H 19.7 H
Band Neutrophils 10 H
09/30/24
03:59
WBC 25.3 H
Band Neutrophils
Lab Results - Chemistry
09/27/24 09/27/24 09/28/24
21:46 23:04 00:30
BUN 23 H 24 H Cancelled
Creatinine 1.1 1.2 Cancelled
Estimated Creat Clear Cancelled
Albumin 2.8 L
09/28/24 09/28/24 09/28/24
01:41 03:15 04:00
BUN 25 H Cancelled Cancelled
Creatinine 1.2 Cancelled Cancelled
Estimated Creat Clear 77 Cancelled Cancelled
Albumin
09/28/24 09/28/24 09/28/24
04:15 05:24 05:24
BUN Cancelled 31 H Cancelled
Creatinine Cancelled 1.5 H
Estimated Creat Clear Cancelled
Albumin
09/28/24 09/28/24 09/28/24
05:24 05:24 07:54
BUN 32 H
Creatinine Cancelled 1.9 H
Estimated Creat Clear 62 Cancelled 49
Albumin 2.3 L
09/28/24 09/28/24 09/28/24
08:00 10:39 11:29
BUN Cancelled 37 H 39 H
Creatinine Cancelled 1.9 H 1.8 H
Estimated Creat Clear Cancelled 49 52
Albumin
09/28/24 09/28/24 09/28/24
12:00 12:00 12:00
BUN Cancelled Cancelled
Creatinine Cancelled Cancelled
Estimated Creat Clear Cancelled
Albumin
09/28/24 09/28/24 09/28/24
12:00 14:00 16:00
BUN Cancelled Cancelled
Creatinine Cancelled Cancelled
Estimated Creat Clear Cancelled Cancelled Cancelled
Albumin
09/28/24 09/28/24 09/28/24
16:34 17:56 20:00
BUN 45 H 45 H Cancelled
Creatinine 2.0 H 2.0 H Cancelled
Estimated Creat Clear 46 46 Cancelled
Albumin
09/28/24 09/29/24 09/29/24
21:43 01:41 01:46
BUN 48 H 50 H Cancelled
Creatinine 2.2 H 2.5 H Cancelled
Estimated Creat Clear 42 37 Cancelled
Albumin Cancelled
09/29/24 09/29/24 09/30/24
04:46 14:58 03:59
BUN 53 H 59 H 65 H
Creatinine 2.6 H 2.7 H 3.2 H
Estimated Creat Clear 37 36 31
Albumin
09/27/24 09/28/24 09/28/24
21:47 01:41 05:24
Lactic Acid 2.3 H 2.2 H 1.8
09/28/24 09/28/24
10:00 14:00
Lactic Acid Cancelled Cancelled
Microbiology Results
09/29/24 15:46 Gram Stain - Preliminary
Heel - Right
09/29/24 15:46 Gram Stain - Preliminary
Heel - Right
09/27/24 21:49 Wound Culture - Preliminary
Foot - Right Gram Stain - Preliminary
09/27/24 21:46 Blood Culture - Preliminary
Blood/Venous Staphylococcus aureus
Gram Stain - Final
09/27/24 21:46 Blood Culture - Preliminary
Blood/Venous Staphylococcus aureus
Gram Stain - Final
09/28/24 13:36 Blood Culture - Preliminary
Blood/Venous Positive culture in progress
Gram Stain - Preliminary
09/28/24 13:36 Blood Culture - Preliminary
Blood/Venous Positive culture in progress
Gram Stain - Preliminary
09/28/24 01:41 MRSA Screen - Final
Nose No Methicillin Resistant Staphylococcus aureus isolated.
Therapeutic Drug Monitoring
Random Vancomycin 16.8 ug/ml 09/30/24 03:59
--- NOTE | 2024-09-30 08:42 | PTCARENOTE ---
Addendum entered by Marcelina Adam RN 09/30/24 08:44:
no cough or gag noted. oral care and am care provided.
Original Note:
pt received from previous rn- ett to vent- unresponsive, nonpurposeful movements. pupils equal and reactive. sinus tach with bbb on monitor. levophed and vaso continue. right radial freya zeroed and functioning. insulin and ivf continue as per
order. pt with doppler pulses, right pedal and bilateral radials absent with doppler. hands and feet dark purple in discoloration and cold to touch. nicolas draining yellow urine- pt oliguric. sister at bedside and updated. all safety precautions in
place.
--- NOTE | 2024-09-30 09:27 | W.PN.INTV ---
Today's Communication / Plan
Recommendations
Continue mechanical ventilation without change
Continue antibiotics
Continue IV fluids
N.p.o. for now
May need sedation as he is overbreathing the vent, no meaningful neurological recovery.
Will discuss with family goals of care, once his children arrive.
Assessment
-
64-year-old man with history of insulin-dependent diabetes, bilateral toe amputation, multiple other comorbidities, admitted with profound metabolic acidosis, change in mental status, developed progressive respiratory failure recurrent intubation.
The morning of 09/28/2024 developed cardiorespiratory arrest requiring CPR x 2. Patient in shock multiple vasopressors, on mechanical ventilation.
Cardiorespiratory arrest likely due to profound metabolic acidosis
CPR x 2 09/28/2024
septic shock-source likely right foot wound.
Hypercapnic respiratory failure recurrent intubation.
DKA-profound metabolic acidosis.
Profound hypokalemia
Encephalopathy: Cannot rule out anoxic brain injury.
Conditions present prior admission:
Hyperlipidemia
Peripheral vascular disease
Hypertension
Peripheral neuropathy-Charcot foot
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
Former smoker
Assessment and plan:
Patient is critically ill, on multiple vasopressors, intubated, sedated.
CT head with multiple brain lesions suggestive of embolic stroke, large left frontal lobe, also extending to the frontoparietal junction in the frontal temporal junction.
No meaningful neurological recovery at this point.
Dr. Arroyo updated sister who is the power of corporate attorney regarding this new findings-unlikely this patient will have recovery to independence. Sister expressed that the patient would not want prolonged mechanical ventilation and life-sustaining
measures. She is discussing with family members next step. I suggest comfort measures.
-
Status post cardiorespiratory arrest. Suspect trigger was profound metabolic acidosis.
CPR x 2. Regained ROSC post CPR for about 2 to 3 minutes twice.
Remains unresponsive-has respiratory effort without sedation.
Occasional respiratory effort/nystagmus with equal pupils/occasional opens eyes-not responsive to verbal stimuli
Continue with supportive care.
-
Septic shock : Bacteremia with a staff aureus noted. Persistent blood cultures-echocardiogram with possible vegetations, possible brain septic emboli-endocarditis suspected.
Suspect source from his right foot-status post bedside debridement 09/29/2024
Chest x-ray unrevealing: ET tube in place. Suspect subsegmental atelectasis. Cannot rule out an aspiration event either.
Continue current antibiotics per ID.
Follow culture identification-staff aureus.
Continue to monitor blood cultures
Possible endocarditis by echocardiogram. Hold off on LOKI-suspect family will stop aggressive care
-
Continue vasopressors -norepinephrine and Nishant-Synephrine to target mean arterial blood pressure 65 mmHg.
Epinephrine discontinued
Lactic acid trending lower.
Unfortunately renal function worsening
Mckee in place with declining urinary output.
-
Metabolic acidosis improved:
Bicarbonate drip discontinued
Continue normal saline at low rate.
Follow electrolytes and renal function
Mckee in place
-
Hyperglycemia: DKA resolved.
Continue insulin drip. Target 100 4180.
-
Mechanical ventilation settings reviewed.
Pulmonary mechanics are adequate.
FiO2 40%.
No significant secretions on ET tube.
ABG noted with respiratory alkalosis and metabolic acidosis. Patient overbreathing the ventilator.
May need some sedation.
Respiratory rate has been adjusted.
-
N.p.o.
Head of the bed elevation
IV Protonix for GI prophylaxis
Lovenox for DVT prophylaxis
-
-
Dr. Arroyo discussed with family 09/30/2024: In view of CT head with large stroke, multiple embolic lesions unlikely that this patient will have any meaningful neurological recovery. Sister with the power of corporate attorney stated that he would not want
prolonged mechanical ventilation or life-sustaining measures for long period of time. She will discuss with family regarding next step. I suggested comfort measures.
Dr. Arroyo updated children at the bedside 09/29/2024. Poor prognosis. Suspected brain injury. They state that Juanis's sister will make decisions. For now continue with full care.
-
Dr. Arroyo updated daughter personally in the hospital, critical situation, high risk of she understands. I have asked her to bring family at the bedside.
For now continue with full support. Apparently patient would not want prolonged mechanical ventilation or life sustaining measures if there is no chance of a good quality of life.
-
Critical care statement: A total of 45 minutes of critical care time was provided for this patient today. This includes management of unstable vital signs, evaluation of the patient at bedside, reviewing the patient's pertinent medical records
including ventilator settings, arterial blood gases, radiographs, microbiology, laboratory evaluations and discussion with primary team, critical care nursing, and respiratory therapy.
Subjective Dataa
Subjective Data
Date of Service:
Date of Service: September 30, 2024
Chief Complaint: Accounts Receivable Administrator Follow Up (Septic shock/hypercapnic respiratory failure)
Subjective:
Unresponsive, mechanical ventilation. Remains on vasopressors
Review of Systems
General: Unobtainable - Pat Unresp
Objective Data
Data Reviewed
Vital Signs / I&O / Oxygen:
Vital Signs
Temp Pulse Resp BP Pulse Ox
99.8 F 99 21 99/41 100
09/30/24 07:52 09/30/24 08:00 09/30/24 08:00 09/29/24 08:00 09/30/24 08:31
Intake and Output
09/29/24 09/30/24 10/01/24
06:59 06:59 06:59
Intake Total 8343.7 / 8525.0 3830.1 / 4233.0 515.8 / 515.8
Output Total 339 / 493 557 / 562
Balance 8004.7 / 8032.0 3273.1 / 3671.0 500.8 / 500.8
SaO2 [A/C] 100
SaO2 100
Nasal Cannula flow liters per 2
minute
Physical Exam
General: Comfortable
HEENT: Normocephalic
Cardiovascular: S1-S2
Respiratory: Non-Labored Respirations and ET Tube (No significant secretion)
GI: Soft and Non Distended
Neurology: Other (Nonresponsive, off sedation-occasional respiratory effort. Nystagmus noted.)
Skin: Other (Bilateral toes amputation.) and Other (Right foot is dressed.)
Labs/Micro/Reports
Lab Data
09/30/24 03:59
09/30/24 03:59
Laboratory Results
09/30/24
03:59
pH 7.53 H
pCO2 21 L
pO2 132 H
HCO3 17.5 L
O2 Delivery Level Vent
Microbiology
09/29/24 15:46 Heel - Right Gram Stain - Preliminary
09/29/24 15:46 Heel - Right Gram Stain - Preliminary
09/27/24 21:49 Foot - Right Wound Culture - Preliminary
09/27/24 21:49 Foot - Right Gram Stain - Preliminary
09/27/24 21:46 Blood/Venous Blood Culture - Preliminary
Staphylococcus aureus
09/27/24 21:46 Blood/Venous Gram Stain - Final
09/27/24 21:46 Blood/Venous Blood Culture - Preliminary
Staphylococcus aureus
09/27/24 21:46 Blood/Venous Gram Stain - Final
09/28/24 13:36 Blood/Venous Blood Culture - Preliminary
Positive culture in progress
09/28/24 13:36 Blood/Venous Gram Stain - Preliminary
09/28/24 13:36 Blood/Venous Blood Culture - Preliminary
Positive culture in progress
09/28/24 13:36 Blood/Venous Gram Stain - Preliminary
09/28/24 01:41 Nose MRSA Screen - Final
No Methicillin Resistant Staphylococcus aureus isolated.
09/27/24 21:47 Nasal Swab Influenza Types A & B (MIRANDA) - Final
Negative for Influenza A & B, NAAT
Negative results must be combined with clinical observations
and patient history.
Nucleic Acid Amplification test (NAAT)performed on the
[employer] platform.
--- NOTE | 2024-09-30 09:28 | W.PN.ID1 ---
Date of Service
Date of Service: September 30, 2024
Today's Communication
Overall prognosis is grim.
Assessment / Plan
# Staph aureus (probably MSSA) bacteremia, sustained
# Suspect infective endocarditis
TTE: 1 cm x 0.8 cm echodensity on MV
# Suspect septic emboli to brain
CT head: numerous decreased densities throughout the brain.
# Septic shock with multi-organ failure , on 3 pressors
Worse YUE, leukocytosis, fevers
Continues to decompensate
# s/p cardiac arrest x 2
# Left heel eschar wound
Podiatry debrided at bedside - no purulence
# Chronic right plantar foot wound
Podiatry debrided at bedside - no purulence
# DM with DKA
# Obtunded
Plan:
- Overall prognosis is grim. Awaiting family decision on goals of care.
- Continue cefazolin 2g IV q12H (d3) for suspected MSSA
- Continue Vancomycin (d4) for now pending culture data
Follow vancomycin level closely
- Continue ICU support for now
-Trend fever curve, vitals, wbc
Chief Complaint
-: Clinical Sepsis and Bacteremia
Subjective / Review of Systems
Remains critically ill on vent.
Vital Signs / Physical Exam
Vital Signs
Vital Signs
Temp Pulse Resp BP Pulse Ox
99.8 F 99 21 99/41 100
09/30/24 07:52 09/30/24 08:00 09/30/24 08:00 09/29/24 08:00 09/30/24 08:31
Selected Entries
09/30/24
04:00
Temp 101.4 F H
Physical Exam
Constitutional: Acutely Ill
Cardiovascular: Regular Rate and S1/S2
Pulmonary: Clear
Gastrointestinal: Soft, Non Tender and Non Distended
Genito-Urinary: Mckee and Clear Urine
Extremities: Edema
Neurological: Other (unresponsive)
Objective Data
Lab Data
Lab Results
09/30/24 03:59
09/30/24 03:59
PT 18.1 Sec (11.4-14.6) H 09/28/24 01:41
INR 1.44 09/28/24 01:41
APTT 35.6 Sec (23.4-35.0) H 09/28/24 01:41
Estimated Creat Clear 31 ml/min 09/30/24 03:59
Lactic Acid Cancelled 09/28/24 14:00
Total Bilirubin Cancelled 09/29/24 01:46
AST Cancelled 09/29/24 01:46
ALT Cancelled 09/29/24 01:46
Alkaline Phosphatase Cancelled 09/29/24 01:46
Most recent labs reviewed.
Micro Results:
09/29/24 15:46 Wound Culture - Pending
Heel - Right Gram Stain - Preliminary
09/29/24 15:46 Wound Culture - Pending
Heel - Right Gram Stain - Preliminary
09/27/24 21:49 Wound Culture - Preliminary
Foot - Right Gram Stain - Preliminary
09/27/24 21:46 Blood Culture - Preliminary
Blood/Venous Staphylococcus aureus
Gram Stain - Final
09/27/24 21:46 Blood Culture - Preliminary
Blood/Venous Staphylococcus aureus
Gram Stain - Final
09/28/24 13:36 Blood Culture - Preliminary
Blood/Venous Positive culture in progress
Gram Stain - Preliminary
09/28/24 13:36 Blood Culture - Preliminary
Blood/Venous Positive culture in progress
Gram Stain - Preliminary
09/28/24 01:41 MRSA Screen - Final
Nose No Methicillin Resistant Staphylococcus aureus isolated.
09/27/24 21:47 Influenza Types A & B (MIRANDA) - Final
Nasal Swab Negative for Influenza A & B, NAAT
Negative results must be combined with clinical observations
and patient history.
Nucleic Acid Amplification test (NAAT)performed on the
[employer] platform.
09/29/[address]: Numerous regions of decreased density throughout the brain including involvement of the cerebral hemispheres and cerebellar hemispheres. Most of these are likely areas of subacute infarction. The largest is in the left frontal
lobe, also extending to the frontoparietal junction in the frontal temporal junction.
Care Review
Plan reviewed with: Physician (Dr. Arroyo)
[2024-09-30 10:00] LABS: Glucose - Point of Care 97 mg/dl (70-99)
--- NOTE | 2024-09-30 10:20 | W.PN.HOSP.TC ---
Today's Communication/Plan
-
Severe sepsis with multiple organ failure with progressive deterioration while on full support.
New findings over the last [address] scan positive for multiple likely embolic CVA.
YUE with rising creatinine.
Shock with profound hypotension, multiple pressor dependent.
Neurologic status with no recovery while off sedation per
Ongoing goals of care discussion with patient's sister. According to patient wishes not to pursue aggressive measures in the state of futility, CODE STATUS changed to DNR
Comfort is priority.
Assessment / Plan
Assessment / Plan
Impression:
Severe sepsis with multiple organ failure
Septic shock with hypotension not responding to IV fluid bolus and requiring multiple pressors.
Gram-positive bacteremia
Left lower lobe infiltrate suspected community-acquired pneumonia
Right foot chronic wound
VDRF.
� Intubated 09/27 in the settings of metabolic encephalopathy and hemodynamic instability.
PEA arrest.
Toxic metabolic encephalopathy in the settings of severe shock and acidosis.
Bilateral subacute CVA suspected embolic possibly septic emboli
Metabolic acidosis/DKA.
Acute kidney injury
Profound hypokalemia
Reported gastrointestinal illness days prior to presentation
Conditions prior to admission:
IDDM.
Essential hypertension.
Diabetic neuropathy.
Dyslipidemia.
Obesity with BMI of 30.
Chronic right foot wound/Charcot foot.
Plan:
Severe sepsis with septic shock not responding to IV fluid bolus requiring multiple pressors.
Blood culture with gram-positive cocci in clusters 2/2 likely sourced from right foot chronic wound
Chest x-ray with left lower lobe infiltrate concern for community-acquired pneumonia.
X-ray of the right foot with extensive soft tissue edema with no evidence of osteomyelitis
X-ray of the left foot concern for new 5.7 mm erosion in the lateral fifth metatarsal head
Echocardiogram 09/28 with concern for mitral valve vegetation
Antibiotics adjusted to vancomycin/cefazolin
Podiatry debrided wound bedside on 09/29
Status post PEA arrest
Remains severely hypotensive
Continue aggressive IV fluid resuscitation with sodium and bicarbonate.
Currently requires multiple pressors including norepinephrine, phenylephrine, epinephrine.
VDRF.
Intubated with toxic metabolic encephalopathy and hemodynamic instability.
Continue sedation with fentanyl
Toxic metabolic encephalopathy.
CT scan of the head with multiple bilateral infarcts, suspected embolic possibly septic emboli.
Currently post PEA arrest.
High clinical suspicion for anoxic brain injury.
Monitor closely for neurologic recovery while off sedation
CT head
Consider neurology evaluation
DKA.
Severe metabolic acidosis ABG: pH 6.9
Hemoglobin A1c 12
Continue insulin drip with serial Accu-Cheks
Acute kidney injury in the settings of profound hypotension/prerenal stimuli.
Mckee catheter.
Urine acidosis while on IV fluid support
Rising creatinine
Pressor support with goal of MAP 55-60
Serial BMP
Essential hypertension.
Dyslipidemia
Diabetic neuropathy
Full code.
DVT prophylaxis Lovenox
Anticipated Discharge: > 48 hours
Subjective/Interval History
-
Date of Service: September 30, 2024
Objective Data
-
Labs:
Laboratory Results
09/30/24
03:59
WBC 25.3 H
Hgb 10.7 L
Hct 30.5 L
Plt Count 34 L D
HCO3 17.5 L
Sodium 143
Potassium 3.8
Chloride 114 H
Carbon Dioxide 19 L
BUN 65 H
Creatinine 3.2 H
Glucose 110 H
Calcium 6.5 L*
Vital Signs:
Vital Signs
Temp Pulse Resp BP Pulse Ox
99.8 F 99 21 99/41 100
09/30/24 07:52 09/30/24 08:00 09/30/24 08:00 09/29/24 08:00 09/30/24 08:31
I&O
09/29/24 09/30/24 10/01/24
06:59 06:59 06:59
Intake Total 8343.7 / 8525.0 3830.1 / 4233.0 745.1 / 745.1
Output Total 339 / 493 557 / 562 35 / 35
Balance 8004.7 / 8032.0 3273.1 / 3671.0 710.1 / 710.1
Physical Exam
-
General: Well Developed and Other (Sedated, intubated.)
HEENT: Normocephalic, Atraumatic, Moist Mucous Membranes and Other (ET tube in place with clear secretions)
Respiratory: Decreased Breath Sounds; Negative Wheezes
Cardiac: Regular Rhythm, S1/S2 and Tachycardic; Negative Murmur, Rub or Gallop
GI: Soft, Nontender, Nondistended and Normal Bowel Sounds; Negative Organomegaly
Rectal: Deferred by Provider
Musculoskeletal: No Clubbing, No Cyanosis and No Edema
Skin: Negative Rash
Neuro: Sedated and Nonfocal/Grossly Intact
--- NOTE | 2024-09-30 10:57 | PTCARENOTE ---
unable obtain blood cultures, dr. tamayo aware, ok to hold
--- NOTE | 2024-09-30 11:54 | PTCARENOTE ---
pt remains unresponsive. vent settings changed per Dr. Arroyo for PATRICIO. family at bedside and updated by MD. assessment unchanged.
[2024-09-30 12:00] LABS: Glucose - Point of Care 130 mg/dl (70-99)
--- NOTE | 2024-09-30 12:30 | PTCARENOTE ---
full bed bath/chg provided, wound care completed to right heel.
--- NOTE | 2024-09-30 13:22 | W.PN.UPDATE ---
Update Note
Progress Note Update
Discussed with sister and children. We have decided to proceed with comfort measures.
He was evaluated for organ transplantation but was declined.
Discontinue unnecessary medications
Focus on comfort
Morphine will be added.
Patient will be downgraded to [facility].
Critical care team will sign off.
[2024-09-30] MEDS: MORPHINE SULFATE 2 MG IV ×3 (13:38→16:17)
--- NOTE | 2024-09-30 13:54 | RESPNOTE ---
Respiratory: patient was extubated without incident, no stridor.
--- NOTE | 2024-09-30 14:01 | PTCARENOTE ---
pt made dnr comfort measures, family at bedside. morphine given, pt extubated. gtts off per order.
[2024-09-30] MEDS: LEVSIN ORAL DROPS 0.125 MG SL (14:47)
--- NOTE | 2024-09-30 16:01 | CHAP ---
Visited [facility] at 11am, with sister, Juanis at his side. Emotional and spiritual support provided, along with a prayer blanket. Additional family members arrived, and med staff came to discuss the situation. I left to give the family privacy,
assuring them they could contact me during the day for further support.
--- NOTE | 2024-09-30 17:18 | W.PN.DEATH ---
Pronouncement of
-
Called to see patient to pronounce.
No spontaneous heart tones or respirations noted.
Patient not responsive to verbal stimuli.
Patient is pronounced .
Time of : 17:04
Date of : 09/30/24
Cause of : Severe sepsis with multiple organ failure
Family Notified: Yes
--- NOTE | 2024-09-30 19:05 | PTCARENOTE ---
pt pronounced at [address] Renteria. family at bedside. GOL on unit this shift- Ellouise- told did not have to call jeff at time of
== END 2024-09-30 22:20 | disposition expired | DRG 871 ==
LOC: ICU 23:58
PROVIDERS: Nurse Practitioner Family; Nurse Practitioner Primary Care; Radiology Vascular & Interventional Radiology; ADMITTING PHYSICIAN Student in an Organized Health Care Education/Training Program; ATTENDING PHYSICIAN Internal Medicine; CONSULT PHYSICIAN Internal Medicine Critical Care Medicine; CONSULT PHYSICIAN Podiatrist Foot & Ankle Surgery; EMERGENCY PHYSICIAN Emergency Medicine; OTHER PHYSICIAN Internal Medicine Infectious Disease
PROC: 0D9670Z Drainage of Stomach with Drainage Device, Via Natural or Artificial Opening (ICD-10-PCS; 2024-09-28)
PROC: 0BH17EZ Insertion of Endotracheal Airway into Trachea, Via Natural or Artificial Opening (ICD-10-PCS; 2024-09-28)
PROC: 3E033XZ Introduction of Vasopressor into Peripheral Vein, Percutaneous Approach (ICD-10-PCS; 2024-09-28)
PROC: 5A1945Z Respiratory Ventilation, 24-96 Consecutive Hours (ICD-10-PCS; 2024-09-28)
PROC: 02H633Z Insertion of Infusion Device into Right Atrium, Percutaneous Approach (ICD-10-PCS; 2024-09-28)
PROC: 5A12012 Performance of Cardiac Output, Single, Manual (ICD-10-PCS; 2024-09-28)
DX: A41.01 Sepsis due to Methicillin susceptible Staphylococcus aureus (principal); E11.10 Type 2 diabetes mellitus with ketoacidosis without coma; I33.0 Acute and subacute infective endocarditis; J18.9 Pneumonia, unspecified organism; R65.21 Severe sepsis with septic shock; G92.8 Other toxic encephalopathy; J96.92 Respiratory failure, unspecified with hypercapnia; I63.40 Cerebral infarction due to embolism of unspecified cerebral artery; L03.115 Cellulitis of right lower limb; N17.9 Acute kidney failure, unspecified; E87.4 Mixed disorder of acid-base balance; L97.429 Non-pressure chronic ulcer of left heel and midfoot with unspecified severity; I76 Septic arterial embolism; Z51.5 Encounter for palliative care; I10 Essential (primary) hypertension; E78.00 Pure hypercholesterolemia, unspecified; F17.200 Nicotine dependence, unspecified, uncomplicated; I45.10 Unspecified right bundle-branch block; E87.6 Hypokalemia; I46.9 Cardiac arrest, cause unspecified; E11.51 Type 2 diabetes mellitus with diabetic peripheral angiopathy without gangrene; E66.9 Obesity, unspecified; E78.5 Hyperlipidemia, unspecified; E11.610 Type 2 diabetes mellitus with diabetic neuropathic arthropathy; E11.621 Type 2 diabetes mellitus with foot ulcer; B96.89 Other specified bacterial agents as the cause of diseases classified elsewhere; E11.40 Type 2 diabetes mellitus with diabetic neuropathy, unspecified; E87.5 Hyperkalemia; Z66 Do not resuscitate; Z68.30 Body mass index [BMI] 30.0-30.9, adult; Z79.4 Long term (current) use of insulin; Z91.148 Patient's other noncompliance with medication regimen for other reason; Z83.3 Family history of diabetes mellitus; Z82.49 Family history of ischemic heart disease and other diseases of the circulatory system; Z89.412 Acquired absence of left great toe; Z89.411 Acquired absence of right great toe; Z88.1 Allergy status to other antibiotic agents; Z11.52 Encounter for screening for COVID-19
CPT/HCPCS: 43752; 70450; 71045; 73620; 80048; 80053; 80202; 81003; 81015; 82010; 82330; 82805; 82962; 83036; 83605; 83690; 83735; 84100; 84132; 84302; 84443; 85025; 85027; 85610; 85730; 87040; 87070; 87077; 87147; 87150; 87186; 87205; 87502; 87811; 93005; 93306; 94002; 94003; 95816; 96361; 96365; 96367; 96375; 99291